=== PATIENT | female | born 1995 | race Caucasian/White ===

== ENCOUNTER 2020-08-11 12:10 | Emergency (ER) | payer BC, SELFPAY ==
[2020-08-11 12:12] VITALS: BP 143/90; PULSE 80; RESP 18; TEMP 36.7; O2SAT 99; BMI 21.6
--- NOTE | 2020-08-11 12:22 | PC.NURSE ---
after confirming pt medication with [facility] pharmacy and with pt, pt reports she was just worried she had taken a sleeping medication. Pt reports she feels her normal at this, denies drowsiness. Pt reports she does want to be seen by ER MD. 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 Pt reports she will call them after she leaves. Educated pt to come back to ER for any concerns, pt verbalized understanding.
[2020-08-11 12:24] VITALS: BP 143/90; PULSE 80; RESP 18; TEMP 36.7; O2SAT 99
--- NOTE | 2020-08-11 12:24 | PC.NURSE ---
pt LWBS by HALEY NICE at this time.
== END 2020-08-11 12:24 | disposition left against medical advice (07) ==
PROVIDERS: Emergency Provider Emergency Medicine; PCP Nurse Practitioner Family
DX: Z53.21 Procedure and treatment not carried out due to patient leaving prior to being seen by health care provider (principal); R51.9 Headache, unspecified
CPT/HCPCS: 99211

== ENCOUNTER → 2021-02-24 20:59 | Outpatient (CLI) | payer BC, SELFPAY | PROVIDERS: Visit Provider Nurse Practitioner Family | DX: J02.9 Acute pharyngitis, unspecified (principal) | CPT/HCPCS: C9803; U0003; U0005 ==

== ENCOUNTER → 2021-02-25 20:17 | Outpatient (CLI) | payer BC, SELFPAY | PROVIDERS: Visit Provider Nurse Practitioner Family | DX: Z20.822 Contact with and (suspected) exposure to COVID-19 (principal) | CPT/HCPCS: C9803; U0003; U0005 ==

== ENCOUNTER 2021-06-15 13:43 | Emergency (ER) | payer BC, SELFPAY ==
[2021-06-15 16:04] VITALS: BP 0/0; PULSE 0; RESP 0; TEMP -17.7; TEMP 0
== END 2021-06-15 16:04 | disposition left against medical advice (07) ==
LOC: UTC 13:47
PROVIDERS: Emergency Provider Nurse Practitioner Family
DX: Z53.21 Procedure and treatment not carried out due to patient leaving prior to being seen by health care provider (principal)

== ENCOUNTER 2022-01-21 10:48 | Emergency (ER) | payer BC, SELFPAY ==
[2022-01-21 13:35] VITALS: BP 0/0; PULSE 0; RESP 0; TEMP -17.7; TEMP 0
== END 2022-01-21 13:36 | disposition left against medical advice (07) ==
PROVIDERS: Emergency Provider Nurse Practitioner
DX: Z53.21 Procedure and treatment not carried out due to patient leaving prior to being seen by health care provider (principal)

== ENCOUNTER 2022-04-09 08:08 | Emergency (ER) | payer BC, SELFPAY ==
[2022-04-09 08:29] VITALS: BP 139/78; PULSE 88; RESP 18; TEMP 36.8; O2SAT 98; BMI 21.2
[2022-04-09 08:38] LABS: UTC Influenza A Antigen Positive (Negative); UTC Influenza B Antigen Negative (Negative); UTC Strep Screen (Rapid) Negative (Negative)
--- NOTE | 2022-04-09 08:45 | EXP.UTC ---
Discharge Plan Disposition Patient Disposition: Home, Self-Care Condition: Good Prescriptions Prescriptions: New oseltamivir [Tamiflu] 75 mg capsule 75 mg PO BID Qty: 10 0RF gyuqteeeqkshlbk-syleraove-GG [Bromfed DM] 2-30-10 mg/5 mL Syrup 5 ml PO Q6H PRN (Reason: Cough) Qty: 240 0RF No Action venlafaxine [Effexor XR] 150 mg capsule,extended release 24hr 150 mg PO HS Mirena 20 mcg/24 hours (6 yrs) 52 mg intrauterine device INTRAUTERI Referrals Follow up/Referrals: Provider,Referral, MD [Primary Care Provider] - See instructions Activity Restrictions/Add. Instructions Additional Instructions/Restrictions: Drink plenty of fluids. Take tylenol or ibuprofen for pain or fever. Take the medications as directed. Follow up with your regular doctor. GO TO THE ER FOR ANY WORSENING SYMPTOMS Clinical Impressions Clinical Impression: Influenza A Stand Alone Forms Stand Alone Forms: Work/School Release Instructions Patient Instructions: DI for Influenza -- Adult, Oseltamivir Discharge ED Provider: Dave Diamond [facility] General Stated complaint: Sore throat, BA, Cough, Congestion, BETHEA Mode of Arrival: Ambulatory Source of Information: Patient Limitations: No Limitations Time Seen by Provider: 04/09/22 08:45 Description of Symptoms (Recalled from Triage Doc. by RN): pt comes in with c/o body aches, headache, cough, congestion, sore throat. symptoms began wednesday. HEENT Symptoms (Recalled from RN notes): Yes Resp Symptoms (Recalled from RN notes): Yes Skin Symptoms (Recalled from RN notes): No MS Symptoms (Recalled from RN notes): No Functional Status (Recalled from RN notes): n/a History of Present Illness Provider Complaint: Her mother states that the child has had a cough, fever and poor appetite since yesterday,. Related Data Home Medications Medication Instructions Recorded Confirmed levonorgestrel 20 mcg/24 hours (8 intrauterine 02/24/21 02/24/21 yrs) 52 mg intrauterine device (Mirena) venlafaxine 150 mg 150 mg PO HS 02/24/21 02/24/21 capsule,extended release 24 hr (Effexor XR) Previous Rx's Medication Instructions Recorded gjujzfelggytxfs-mhaedxzwjjllnto-HG 5 ml PO Q6H PRN Cough #240 mL 04/09/22 2 mg-30 mg-10 mg/5 mL oral syrup (Bromfed DM) oseltamivir 75 mg capsule (Tamiflu) 75 mg PO BID #10 caps 04/09/22 Allergies Allergy/AdvReac Type Severity Reaction Status Date / Time No Known Allergies Allergy Verified 04/09/22 08:32 Worker's Comp Is this a Worker's Comp case?: No PFSH PFSH Social History Smoking Status: Current every day smoker tobacco type: cigarettes packs per day: 1 alcohol intake: never current occupational status: employed Travel in the last 8 weeks: None household members: family housing: house ROS Obtained: Yes All systems reviewed & no additional complaints except as documented Constitutional Constitutional: Reports chills and Reports fever(s) Eyes Eyes: Denies eye discharge ENT Ears, Nose, Mouth, and Throat: Reports as per HPI Cardiovascular Cardiovascular: Denies chest pain Respiratory Respiratory: Denies chest congestion and Reports cough Gastrointestinal Gastrointestingal: Reports nausea; Denies abdominal pain, constipation, cramping, diarrhea or vomiting Musculoskeletal Musculoskeletal: Denies arthralgias Integumentary/Breasts Skin/Breast: Denies rash Neurologic Neurologic: Denies paresthesias Physical Exam General General appearance: alert and in no apparent distress Head Head exam: atraumatic, normocephalic and normal inspection Eye Eye exam: Present normal appearance, PERRL and EOMI ENT ENT exam: Present normal exam, normal oropharynx, mucous membranes moist, TM's normal bilaterally and normal external ear exam Neck Neck exam: Present normal inspection, full ROM and trachea midline; Absent meningismus or lymphadenopathy Chest Annalisa
[2022-04-09 08:59] VITALS: BP 139/78; PULSE 88; RESP 18; TEMP 36.8
== END 2022-04-09 09:08 | disposition home or self-care (01) ==
PROVIDERS: Emergency Provider Nurse Practitioner Family
DX: J10.1 Influenza due to other identified influenza virus with other respiratory manifestations (principal); M54.9 Dorsalgia, unspecified; R50.9 Fever, unspecified; R05.9 Cough, unspecified; R51.9 Headache, unspecified; F17.210 Nicotine dependence, cigarettes, uncomplicated
CPT/HCPCS: 87804; 87880; 99213; G0463

== ENCOUNTER → 2022-11-05 23:00 | Outpatient (CLI) | payer BC, SELFPAY ==
[2022-11-05 18:38] LABS: Basophils % 0.2 % (0.1-2.0); Eosinophils # 0.2 K/mm3 (0.0-0.4); Eosinophils % 2.4 % (0.1-12.0); Hematocrit 39.5 % (37.0-47.0); Hemoglobin 13.2 g/dL (12.2-16.2); Lymphocytes # 3.2 K/mm3 (0.7-4.5); Lymphocytes % 43.5 % (10-50); Mean Corpuscular HGB Conc 33.3 g/dL (31.8-35.4); Mean Corpuscular Hemoglobin 27.9 pg (27.0-31.2); Mean Corpuscular Volume 83.6 fl (81-99); Mean Platelet Volume 7.9 fl (7.4-10.4); Monocytes # 0.3 K/mm3 (0.1-1.0); Monocytes % 4.3 % (1.7-9.3); Neutrophils # 3.6 K/mm3 (1.8-7.8); Neutrophils % 49.6 % (37.0-80.0); Platelet Count 294 K/mm3 (142-424); Red Blood Count 4.72 M/mm3 (4.20-5.40); Red Cell Distribution Width 13.7 % (11.5-17.5); White Blood Count 7.3 K/mm3 (4.8-10.8)
[2022-11-05 19:03] LABS: Alanine Aminotransferase 22 U/L (12-78); Albumin Level 4.7 g/dl (3.5-5.0); Albumin/Globulin Ratio 1.5 (1.1-1.8); Alkaline Phosphatase 54 U/L (38-126); Anion Gap 17.6 mEq/L (5-15); Aspartate Amino Transferase 30 U/L (14-36); Bilirubin,Total 0.9 mg/dl (0.2-1.3); Blood Urea Nitrogen 10 mg/dl (7-17); Carbon Dioxide 25 mmol/L (22.0-30.0); Chloride 102 mmol/L (98-107); Chol/HDL Ratio 2.2 (1-3.5); Cholesterol 145 mg/dl (140-200); Estimated Glomerular Filt Rate 122 ml/min (>60); GFR (African American) 147 ML/MIN (>60); Globulin 3.1 g/dL (1.3-3.2); Glucose 73 mg/dl (74-100); HDL Cholesterol 65 mg/dl (40-60); Potassium 4.6 mmoL/L (3.5-5.1); Sodium 140 mmol/L (136-145); Total Protein,Serum 7.8 g/dl (6.3-8.2); Triglycerides 58 mg/dl (30-150); VLDL Cholesterol 12 mg/dL (0-40)
[2022-11-05 19:15] LABS: Direct LDL Cholesterol 66.82 mg/dL (100-129)
[2022-11-05 19:24] LABS: 25-OH Vitamin D, Total 53.9 ng/mL (30-100)
[2022-11-05 19:53] LABS: Vitamin B12 606 pg/mL (239-931)
== END ==
PROVIDERS: PCP Physician Assistant; Visit Provider Physician Assistant
DX: F32.A Depression, unspecified (principal); F41.9 Anxiety disorder, unspecified; Z79.899 Other long term (current) drug therapy
CPT/HCPCS: 80053; 80061; 82306; 82607; 84443; 85025

== ENCOUNTER → 2022-11-26 08:48 | Outpatient (CLI) | payer BC, SELFPAY | PROVIDERS: Visit Provider Nurse Practitioner | DX: Z11.1 Encounter for screening for respiratory tuberculosis (principal) | CPT/HCPCS: 86580 ==

== ENCOUNTER 2023-06-01 13:52 | Emergency (ER) | payer BC, SELFPAY ==
[2023-06-01 16:02] VITALS: BP 0/0; PULSE 0; RESP 0; TEMP -17.7; TEMP 0
== END 2023-06-01 16:03 | disposition left against medical advice (07) ==
LOC: UTC 13:56
PROVIDERS: Emergency Provider Nurse Practitioner; PCP Physician Assistant
DX: Z53.21 Procedure and treatment not carried out due to patient leaving prior to being seen by health care provider (principal)

== ENCOUNTER 2023-08-11 10:49 | Emergency (ER) | payer BC, SELFPAY ==
[2023-08-11 11:05] VITALS: BP 106/76; PULSE 65; RESP 18; TEMP 37.1; O2SAT 97; BMI 23.6
--- NOTE | 2023-08-11 11:09 | ED_ITS ---
Discharge Plan Disposition Patient Disposition: Home, Self-Care Condition: Good Prescriptions Prescriptions: New amoxicillin 500 mg tablet 500 mg PO TID 10 Days Qty: 30 0RF bxmzfgmxbuxylgh-gzrupwjed-GY [Bromfed DM] 2-30-10 mg/5 mL Syrup 5 ml PO Q6H PRN (Reason: Cough) Qty: 240 0RF No Action Mirena 20 mcg/24 hours (6 yrs) 52 mg intrauterine device 1 device INTRAUTERI ONCE Trintellix 10 mg tablet 10 mg PO DAILY Qty: 30 2RF Referrals Follow up/Referrals: Guillermina Arias PA [Primary Care Provider] - See instructions Activity Restrictions/Add. Instructions Additional Instructions/Restrictions: Drink plenty of fluids. Take tylenol or ibuprofen for pain or fever. Take the medications as directed. Follow up with your regular doctor. GO TO THE ER FOR ANY WORSENING SYMPTOMS Throw your tooth brush away and get a new one. Clinical Impressions Clinical Impression: Strep throat Instructions Patient Instructions: Strep Throat, DI for Strep Throat Discharge ED Provider: Dave Diamond [facility] General Stated complaint: Sore throat Time Seen by Provider: 08/11/23 11:09 History of Present Illness Provider Complaint: She states that for the past 1 day she has had sore throat, malaise, cough, low grade fever and a cough. Related Data Home Medications Medication Instructions Recorded Confirmed levonorgestrel 21 mcg/24 hours (8 1 device intrauterine ONCE b/c 02/24/21 03/22/23 yrs) 52 mg intrauterine device (Mirena) Previous Rx's Medication Instructions Recorded vortioxetine 10 mg tablet 10 mg PO DAILY #30 tabs 04/27/23 (Trintellix) amoxicillin 500 mg tablet 500 mg PO TID 10 days #30 tabs 08/11/23 cssriuacycezizl-oxuzzmrokzabylq-PQ 5 ml PO Q6H PRN Cough #240 mL 08/11/23 2 mg-30 mg-10 mg/5 mL oral syrup (Bromfed DM) Allergies Allergy/AdvReac Type Severity Reaction Status Date / Time vraylar AdvReac Intermediate sleepiness Uncoded 08/11/23 11:21 [facility] Disclaimer: The information contained in this section may have been updated after the patient was seen, as this information can be updated by other users. Social History Smoking Status: Current every day smoker tobacco type: cigarettes packs per day: 1 alcohol intake: never current occupational status: employed Travel in the last 8 weeks: None household members: family housing: house ROS Obtained: Yes All systems reviewed & no additional complaints except as documented Constitutional Constitutional: Reports chills and Reports fever(s) Eyes Eyes: Denies eye discharge ENT Ears, Nose, Mouth, and Throat: Reports as per HPI Cardiovascular Cardiovascular: Denies chest pain Respiratory Respiratory: Denies chest congestion and Reports cough Gastrointestinal Gastrointestingal: Reports nausea; Denies abdominal pain, constipation, cramping, diarrhea or vomiting Musculoskeletal Musculoskeletal: Denies arthralgias Integumentary/Breasts Skin/Breast: Denies rash Neurologic Neurologic: Denies paresthesias Physical Exam General General appearance: alert and in no apparent distress Head Head exam: atraumatic, normocephalic and normal inspection Eye Eye exam: Present normal appearance, PERRL and EOMI ENT ENT exam: Present mucous membranes moist and normal external ear exam Expanded ENT Exam TM/Canal exam: Bilateral TM: erythema and bulging Nose exam: Absent sinus tenderness Mouth exam: Present normal external inspection; Absent drooling Teeth exam: Present normal inspection Throat exam: Present tonsillar erythema, tonsillomegaly and tonsillar exudate Neck Neck exam: Present normal inspection, full ROM and trachea midline; Absent tenderness, meningismus or lymphadenopathy Chest Chest inspection: Present normal inspection and symmetric chest wall rise; Absent tenderness Respiratory Respiratory exam: Present normal lung sounds bilaterally; Absent respiratory distress, wheezes, stridor or accessory muscle use Cardiovascular Cardiovascular exam: Present regular rate and normal rhythm; Absent systolic murmur or diastolic murmur Abdominal Exam Abdominal exam: Present soft and normal bowel sounds; Absent distention, tenderness, guarding, rebound or rigidity Extremities Exam Extremities exam: Present normal inspection and normal capillary refill; Absent calf tenderness Back Exam Back exam: Present normal inspection and full ROM; Absent tenderness, CVA tenderness (R) or CVA tenderness (L) Neurological Exam Neurological exam: Present alert, oriented X3 and CN II-XII intact Psychiatric Psychiatric exam: Present normal affect and normal mood Skin Skin exam: Present warm, dry, intact and normal color Medical Decision Making Medical Records Medical records reviewed: No I reviewed the patient's medical records. Presley Inquiry Pt receiving controlled substance: No Lab Data Lab results reviewed: Yes I reviewed the patient's lab results.
[2023-08-11 11:22] LABS: UTC Strep Screen (Rapid) Positive (Negative)
[2023-08-11 11:52] VITALS: BP 106/76; PULSE 65; RESP 18; TEMP 37.1; O2SAT 97
== END 2023-08-11 11:52 | disposition home or self-care (01) ==
PROVIDERS: Emergency Provider Nurse Practitioner Family; PCP Physician Assistant
DX: J02.0 Streptococcal pharyngitis (principal); R05.9 Cough, unspecified; R53.81 Other malaise; F17.210 Nicotine dependence, cigarettes, uncomplicated
CPT/HCPCS: 87880; 99212; 99214; G0463

== ENCOUNTER 2023-09-21 17:48 | Day surgery (SDC) | payer BC, SELFPAY ==
[2023-09-21] VITALS (8 sets, daily range): BP systolic 120–152; BP diastolic 63–84; PULSE 61–75; RESP 16–20; TEMP 36.8; O2SAT 99–100; BMI 22.0
--- NOTE | 2023-09-21 18:14 | HMH.EDGENADL ---
Discharge Plan Disposition Patient Disposition: Admitted Chief Complaint: Urogenital-Female Prescriptions Prescriptions: No Action Mirena 20 mcg/24 hours (6 yrs) 52 mg intrauterine device 1 device INTRAUTERI ONCE Trintellix 10 mg tablet See Rx Instructions .ROUTE .COMPLEX Qty: 30 0RF Dose Instruction: Take 1 tablet by mouth once daily Rx Instructions: Take 1 tablet by mouth once daily amoxicillin 500 mg tablet 500 mg PO TID 10 Days Qty: 30 0RF rvqvelawszdxajd-jvjncwaav-UI [Bromfed DM] 2-30-10 mg/5 mL Syrup 5 ml PO Q6H PRN (Reason: Cough) Qty: 240 0RF Referrals Follow up/Referrals: Guillermina Arias PA [Primary Care Provider] - See instructions Clinical Impressions Clinical Impression: Torsion of left ovary, Cyst of right ovary Instructions Patient Instructions: DI for Urinary Tract Infection (UTI), DI for Urinary Tract Infection in Children Discharge ED Provider: Thomas Gonzales General Adult HPI General Chief complaint: Urogenital-Female Stated complaint: abd pain, possible lost vaginal IUD Time Seen by Provider: 09/21/23 17:51 History of Present Illness HPI narrative: 28-year-old female with no relevant medical history presenting with concern for IUD displacement. Patient states that she had IUD placed about 6 months ago. Today, 09/20, woke up and began having pain in her left lower quadrant. Crescendo throughout the day. Went to work and had not taken any medications. Got home after work today, tried to lay down to take a nap. Pain woke her up from sleep in her left lower quadrant. Left lower quadrant pain radiates to her left flank. No dysuria, hematuria, fevers, chills, vomiting, blood in her stool, constipation, diarrhea, abnormal vaginal discharge or bleeding. Please note that above description of symptoms, in this electronic medical record under categorization of recalled from ER triage doctor by RN are reflective of an initial nursing assessment, however, is not reflective of my full history and physical exam that was personally taken and clarified. Consequentially, this preceding description of symptoms, which may include the patient's categorized chief complaint in the EMR, do not reflect my personal clinical impression, and the ultimate description of history of present illness and patient stated complaints should be deferred to this section of the note. Unless stated otherwise or congruent with this section of the note, additional signs, symptoms, or incongruence should be interpreted as inaccurate with my clinical impression. Related Data Home Medications Medication Instructions Recorded Confirmed levonorgestrel 21 mcg/24 hours (8 1 device intrauterine ONCE b/c 02/24/21 03/22/23 yrs) 52 mg intrauterine device (Mirena) Previous Rx's Medication Instructions Recorded amoxicillin 500 mg tablet 500 mg PO TID 10 days #30 tabs 08/11/23 eyfftqlpgaroqbl-tmycsiwvbpaizyq-ZY 5 ml PO Q6H PRN Cough #240 mL 08/11/23 2 mg-30 mg-10 mg/5 mL oral syrup (Bromfed DM) vortioxetine 10 mg tablet See Rx Instructions .Route 09/20/23 (Trintellix) .COMPLEX #30 tabs Allergies Allergy/AdvReac Type Severity Reaction Status Date / Time cariprazine [From Vraylar] AdvReac Depression Verified 09/17/23 10:46 PFSH PFS Disclaimer: The information contained in this section may have been updated after the patient was seen, as this information can be updated by other users. Social History Smoking Status: Never smoker alcohol intake: never current occupational status: employed Travel in the last 8 weeks: None household members: family housing: house ROS Obtained: Yes All systems reviewed & no additional complaints except as documented Physical Exam General General appearance: alert and in no apparent distress Head Head exam: atraumatic and normocephalic Eye Eye exam: Present normal appearance, PERRL and EOMI ENT ENT exam: Present mucous membranes moist Neck Neck exam: Present normal inspection, full ROM and trachea midline Respiratory Respiratory exam: Absent respiratory distress, wheezes, stridor, accessory muscle use or prolonged expiratory phase Cardiovascular Cardiovascular exam: Present normal rhythm Abdominal Exam Abdominal exam: Present soft and tenderness; Absent distention, guarding, rebound or rigidity Abdominal tenderness: Present LLQ and mild Extremities Exam Extremities exam: Absent edema Back Exam Back exam: Present CVA tenderness (L); Absent CVA tenderness (R) Neurological Exam Neurological exam: Present alert, oriented X3, CN II-XII intact and normal gait; Absent motor sensory deficit Skin Skin exam: Present warm and dry; Absent diaphoresis or erythema Medical Decision Making Medical Records Medical records reviewed: Yes I reviewed the patient's medical records. Presley Inquiry Pt receiving controlled substance: No Presley was queried for this patient: No Vital Signs: 09/21/23 18:02 09/21/23 20:13 09/21/23 20:30 Temperature 98.3 F Temperature Source Oral Pulse Rate 65 61 Pulse Rate [Left Radial] 75 Respiratory Rate 20 18 16 Blood Pressure 123/72 127/84 Blood Pressure [Right Arm] 129/83 Blood Pressure Mean 86 94 Blood Pressure Mean [Right Arm] 98 02 Sat by Pulse Oximetry 99 100 100 Oxygen Delivery Method Room Air Room Air Room Air 09/21/23 21:40 Temperature Temperature Source Pulse Rate 70 Pulse Rate [Left Radial] Respiratory Rate Blood Pressure 121/78 Blood Pressure [Right Arm] Blood Pressure Mean 89 Blood Pressure Mean [Right Arm] 02 Sat by Pulse Oximetry 100 Oxygen Delivery Method Lab Data Lab Results 09/21/23 18:29: Urine Color Yellow, Urine Appearance Clear, Urine pH 6.0, Ur Specific [place] 1.025, Urine Protein Negative, Urine Glucose (UA) Negative, Urine Ketones Negative, Urine Blood 1+, Urine Nitrate Negative, Urine Bilirubin Negative, Urine Urobilinogen 0.2, Ur Leukocyte Esterase Negative, Urine RBC 3-5, Urine WBC Occasional, Ur Squamous Epith Cells Occasional, Urine Bacteria None 09/21/23 18:38: WBC 8.0, RBC 4.13 L, Hgb 12.1 L, Hct 34.9 L, MCV 84.6, MCH 29.3, MCHC 34.6, RDW 14.8, Plt Count 215, MPV 7.9, Neut % (Auto) 52.0, Lymph % (Auto) 38.8, [place] % (Auto) 4.3, Eos % (Auto) 4.2, Baso % (Auto) 0.8, Neut # (Auto) 4.2, Lymph # (Auto) 3.1, [place] # (Auto) 0.4, Eos # (Auto) 0.3, Baso # (Auto) 0.1, Sodium 140, Potassium 3.4 L, Chloride 110 H, Carbon Dioxide 25, Anion Gap 8.4, BUN 11, Creatinine 0.70, Estimated Creat Clear 126, Estimated GFR 101, Est GFR ( Amer) 122, Glucose 72 L, Lactate 0.5 L, Calcium 9.1, Total Bilirubin 0.7, AST 26, ALT 17, Alkaline Phosphatase 50, Total Protein 6.8, Albumin 4.1, Globulin 2.7, Albumin/Globulin Ratio 1.5, Lipase 32, HCG, Quant < 2 09/21/23 18:38 09/21/23 18:38 Orders (Tests/Meds): ED MEDICATIONS Generic Name Dose Route Start Last Admin Trade Name Freq PRN Reason Stop Dose Admin Lactated Ringer's 1,000 mls @ 999 mls/hr 09/21/23 22:10 09/21/23 22:13 Lactated Ringer's 1000 Ml Bag IV 09/21/23 23:10 999 mls/hr .Q1H1M ONE Administration Sodium Chloride 10 ml 09/21/23 19:35 09/21/23 19:36 Sodium Chloride 0.9% 10ml Syr (Rad Only) IV 10/21/23 19:34 10 ml NEEDED PRN Administration Maintain IV Site Discontinued Medications Generic Name Dose Route Start Last Admin Trade Name Freq PRN Reason Stop Dose Admin Acetaminophen 1,000 mg 09/21/23 19:24 09/21/23 19:48 Acetaminophen 1,000mg/100ml Vial IV 09/21/23 19:25 1,000 mg ONCE ONE Administration Iopamidol 75 ml 09/21/23 19:35 09/21/23 19:36 Iopamidol-370 (76%);100ml Bottle IV 09/21/23 19:36 75 ml ONCE ONE Administration Ketorolac Tromethamine 15 mg 09/21/23 19:23 09/21/23 19:48 Ketorolac 30mg/Ml Vial IV 09/21/23 19:24 15 mg ONCE ONE Administration ORDERS Category Date Time Status CT abdomen pelvis w con Stat Cat Scan 09/21/23 19:23 Completed POCUS Point of Care (ER Only) Stat Exams 09/21/23 18:01 Taken US transvaginal Stat Exams 09/21/23 20:32 Taken Complete Blood Count Auto Diff Stat Lab 09/21/23 18:38 Completed Comprehensive Metabolic Panel Stat Lab 09/21/23 18:38 Completed HCG,Quantitative Stat Lab 09/21/23 18:38 Completed Lactic Acid Stat Lab 09/21/23 18:38 Completed Lipase Stat Lab 09/21/23 18:38 Completed Urinalysis and Microscopic Stat Lab 09/21/23 18:29 Completed Medical Decision Narrative: 28-year-old female with no relevant medical history presenting with concern for IUD displacement. Patient states that she had IUD placed about 6 months ago. Today, 09/20, woke up and began having pain in her left lower quadrant. Crescendo throughout the day. Went to work and had not taken any medications. Got home after work today, tried to lay down to take a nap. Pain woke her up from sleep in her left lower quadrant. Left lower quadrant pain radiates to her left flank. No dysuria, hematuria, fevers, chills, vomiting, blood in her stool, constipation, diarrhea, abnormal vaginal discharge or bleeding. History was obtained via conversation with patient. On arrival, patient hemodynamically stable, alert, oriented x4, appropriate, GCS 15, moving all extremities spontaneously, pupils equal and reactive to light. Full physical exam performed and significant for mildly uncomfortable appearing woman who is in no acute distress. Nontachycardic on my exam. Speaking in full sentences. No overlying skin changes. Abdomen is soft, mildly tender in left lower quadrant. No evidence of rebound tenderness or peritonitis. She does have left flank tenderness. Differential includes PUD, gastritis, enteritis, gastroenteritis, pancreatitis, SBO, colitis, diverticulitis, nephrolithiasis, UTI, , cholecystitis, appendicitis, hepatitis, torsion, among others. Patient was given Toradol and acetaminophen for symptomatic management and correction of underlying abnormalities. Workup independently interpreted and significant for nonactionable CBC. Electrolytes within normal limits, kidney function normal. LFTs within normal limits as well. hCG was negative. CT abdomen pelvis independently interpreted and with concern for heterogenous left adnexal cyst as well as large right adnexal cyst. Pelvic ultrasound was ordered. On independent interpretation, this demonstrated large right adnexal simple cyst without evidence of torsion, but large hemorrhagic adnexal cyst on the left versus acute ovarian torsion. VENDING SERVICE TECHNICIAN was contacted and case was discussed at length, they agreed to come see patient. Patient n.p.o. since noon today, 09/20, deemed operative candidate. Fluids were started. Because patient high risk for clinical decompensation, deemed appropriate for inpatient admission. Results were relayed to patient who voiced understanding and patient was agreeable to inpatient admission and management. Patient was admitted to the hospital for further definitive management. Procedures Limited Ultrasound Indication:: Limited renal ultrasound Indication: A focused ultrasound of the kidneys was performed to evaluate for hydronephrosis and nephrolithiasis. The ultrasound was performed with the following indications, as noted in the H&P: Abdominal and flank pain on the left Identified structures: Left kidney, bladder Findings: Left kidney with concern for mild hydronephrosis Normal decompressed bladder No free fluid No obvious ureterolithiasis Impression: Mild hydronephrosis with decompressed bladder Images were saved to permanent archive The study was technically adequate CPT: 58556-61 This study was performed by me, and I personally interpreted all images/videos. Based on my clinical judgement, these images were adequate and did necessitate further imaging. Critical Care Critical Care Time Critical Care Time: No
[2023-09-21 18:32] LABS: Microscopic, Urine URINE MICROSCOPIC (MICROSCOPIC)
[2023-09-21 18:48] LABS: Appearance,Urine CLEAR (Clear); Bilirubin,Urine Negative (Negative); Blood, Urine 1+ (Negative); Color,Urine YELLOW (Yellow); Glucose,Urine (UA) Negative (Negative); Ketones,Urine Negative (Negative); Leukocyte Esterase,Urine Negative (Negative); Nitrate,Urine Negative (Negative); Protein,Urine Negative (Negative); Specific Gravity, Urine 1.025 (1.005-1.030); Urobilinogen,Urine 0.2 EU/dl (0.2)
[2023-09-21 18:52] LABS: Basophils # 0.1 K/mm3 (0-0.2); Basophils % 0.8 % (0.1-2.0); Eosinophils # 0.3 K/mm3 (0.0-0.4); Eosinophils % 4.2 % (0.1-12.0); Hematocrit 34.9 % (37.0-47.0); Hemoglobin 12.1 g/dL (12.2-16.2); Lymphocytes # 3.1 K/mm3 (0.7-4.5); Lymphocytes % 38.8 % (10-50); Mean Corpuscular HGB Conc 34.6 g/dL (31.8-35.4); Mean Corpuscular Hemoglobin 29.3 pg (27.0-31.2); Mean Corpuscular Volume 84.6 fl (81-99); Mean Platelet Volume 7.9 fl (7.4-10.4); Monocytes # 0.4 K/mm3 (0.1-1.0); Monocytes % 4.3 % (1.7-9.3); Neutrophils # 4.2 K/mm3 (1.8-7.8); Platelet Count 215 K/mm3 (142-424); Red Blood Count 4.13 M/mm3 (4.20-5.40); Red Cell Distribution Width 14.8 % (11.5-17.5)
[2023-09-21 18:57] LABS: Chloride 110 mmol/L (98-107); Potassium 3.4 mmoL/L (3.5-5.1); Sodium 140 mmol/L (136-145)
[2023-09-21 18:59] LABS: Alanine Aminotransferase 17 U/L (12-78); Aspartate Amino Transferase 26 U/L (14-36); Blood Urea Nitrogen 11 mg/dl (7-17); Creatinine Clearance Estimated 126 mL/min (50-200); Estimated Glomerular Filt Rate 101 ml/min (>60); GFR (African American) 122 ML/MIN (>60); Lactic Acid 0.5 mmol/L (0.7-2.1)
[2023-09-21 19:00] LABS: Albumin Level 4.1 g/dl (3.5-5.0); Albumin/Globulin Ratio 1.5 (1.1-1.8); Alkaline Phosphatase 50 U/L (38-126); Anion Gap 8.4 mEq/L (5-15); Bilirubin,Total 0.7 mg/dl (0.2-1.3); Calcium 9.1 mg/dl (8.4-10.2); Carbon Dioxide 25 mmol/L (22.0-30.0); Globulin 2.7 g/dL (1.3-3.2); Glucose 72 mg/dl (74-100); Lipase 32 U/L (23-300); Total Protein,Serum 6.8 g/dl (6.3-8.2)
[2023-09-21 19:17] LABS: HCG,Quantitative < 2 mIU/ml (0-5.42)
--- NOTE | 2023-09-21 19:23 | CT_ITS ---
PROCEDURE INFORMATION: Exam: CT Abdomen And Pelvis With Contrast Exam date and time: 09/21/2023 7:34 PM Age: 28 years old Clinical indication: Abdominal pain; Flank; Left lower quadrant (llq); Additional info: Llq pain to flank, concern for mild hydro on US TECHNIQUE: Imaging protocol: Computed tomography of the abdomen and pelvis with contrast. Total images: 290 Radiation optimization: All CT scans at this facility use at least one of these dose optimization techniques: automated exposure control; mA and/or kV adjustment per patient size (includes targeted exams where dose is matched to clinical indication); or iterative reconstruction. Contrast material: ISOVUE; Contrast volume: 75 ml; Contrast route: IV; COMPARISON: No relevant prior studies available. FINDINGS: Lungs: Lung bases are clear. Heart: Normal heart size. Liver: Nonenlarged liver with mildly heterogeneous attenuation. Normal contour. No discrete mass. Gallbladder and bile ducts: Mild gallbladder wall thickening likely from incomplete distension. No calcified gallstones or pericholecystic edema. No bile duct dilatation. Pancreas: Normal. No ductal dilation. Spleen: Heterogeneous nonenlarged spleen compatible phase of contrast. Adrenal glands: Normal. No mass. Kidneys and ureters: No nephrolithiasis, hydronephrosis, or renal mass. No perinephric fluid. No ureteral stones. Stomach and bowel: Unremarkable stomach and duodenum. No ileus or bowel obstruction. Small bowel is within normal limits. Unremarkable terminal ileum. Unremarkable colon. Collapsed rectum. Appendix: Normal appendix. Intraperitoneal space: No ascites. No free air. Vasculature: Abdominal aorta is normal in caliber. Major abdominal vessels enhance appropriately. Lymph nodes: Unremarkable. No enlarged lymph nodes. Urinary bladder: Mild bladder wall thickening. Reproductive: Retroverted nonenlarged uterus containing an IUD. 3.6 cm right ovarian cyst with simple water attenuation. 4.5 cm complex left ovarian lesion with attenuation higher than water density and a possible peripheral rind of soft tissue or blood product. Recommend follow-up ultrasound. Small quantity free pelvic fluid. Bones/joints: Unremarkable. No acute fracture. Soft tissues: Unremarkable. IMPRESSION: 1. 4.5 cm complex left ovarian lesion, not consistent with a simple cyst. Follow-up pelvic ultrasound with Doppler. 2. 3.6 cm right ovarian simple appearing cyst. This can be further evaluated time of ultrasound. 3. Small quantity free pelvic fluid. 4. Status post IUD. 5. No hydronephrosis or nephrolithiasis. 6. Normal appendix. 7. Mildly heterogeneous liver attenuation likely from phase of contrast versus steatosis or sequela of nonspecific hepatocellular process. 8. Gallbladder wall thickening most likely from incomplete distension. No secondary signs of acute cholecystitis. 9. Mild bladder wall thickening from incomplete distension versus cystitis.
[2023-09-21 19:34] LABS: Squamous Epithelial Cell,Urine Occasional #/hpf (0-5); WBC,Urine Occasional #/hpf (0-3)
[2023-09-21] MEDS: SODIUM CHLORIDE 0.9% 10ML SYR (RAD ONLY) 10 ML IV (19:36)
[2023-09-21] MEDS: IOPAMIDOL-370 (76%);100ML BOTTLE 75 ML IV (19:36)
[2023-09-21] MEDS: KETOROLAC 30MG/ML VIAL 15 MG IV (19:48)
[2023-09-21] MEDS: ACETAMINOPHEN 1,000MG/100ML VIAL 1000 MG IV (19:48)
--- NOTE | 2023-09-21 19:52 | PC.NURSE ---
Pt medicated, warm blanket provided, family at bedside, no other needs at this time
--- NOTE | 2023-09-21 20:32 | US_ITS ---
PROCEDURE INFORMATION: Exam: US Duplex Artery and Vein of the Abdominal and/or Reproductive Organs. Complete Ovaries Exam date and time: 09/21/2023 8:59 PM Clinical indication: Pelvic pain; Additional info: L ovarian pain concern for torsino TECHNIQUE: Imaging protocol: Real-time duplex ultrasound scan of the arterial and venous flow with color Doppler flow and spectral waveform analysis with image documentation. Complete duplex exam focused on the ovaries. Duplex exam was performed to evaluate for torsion and other vascular conditions. COMPARISON: No relevant prior studies available. FINDINGS: Right ovary/adnexa: Normal duplex of the ovary. Normal Doppler waveforms and color flow. Arterial and venous flow are normal. No evidence of ovarian torsion. Left ovary/adnexa: Normal duplex of the ovary. Normal Doppler waveforms and color flow. Arterial and venous flow are normal. No evidence of ovarian torsion. IMPRESSION: Normal ovarian arterial and venous vascular flow. No evidence ovarian torsion. PROCEDURE INFORMATION: Exam: US Pelvis, Transvaginal Exam date and time: 09/21/2023 8:59 PM Age: 28 years old Clinical indication: Pelvic pain; Additional info: L ovarian pain concern for torsino LABS AND CLINICAL REPORTS: Last menstrual period start date: 09/03/2023 TECHNIQUE: Imaging protocol: Real-time transvaginal pelvic ultrasound with image documentation. Transvaginal imaging was used for better evaluation of the endometrium, adnexa, and/or cervix. Total images: 496 COMPARISON: CT ABDOMEN PELVIS W CON 09/21/2023 7:34 PM FINDINGS: Uterus: Retroverted uterus measures 7.59 cm x 4.65 cm x 4.67 cm. Homogeneous myometrium. No uterine mass. Endometrial thickness 9.5 mm. Appropriately positioned IUD. Right ovary/adnexa: Right ovary measures 5.14 cm x 4.19 cm x 3.13 cm. Right ovarian volume is 35.3 mL. 3.6 x 2.8 x 2.9 cm simple unilocular right ovarian cyst corresponding with CT. Additional right ovarian follicles. Left ovary/adnexa: Left ovary measures 4.87 cm x 4.57 cm x 3.98 cm. Left ovarian volume is 46.38 mL. Complex avascular hypoechoic left ovarian lesion, measuring 4.4 cm, near completely replacing the normal ovarian parenchyma. Findings likely reflect hemorrhagic cyst or endometrioma. Consider ovarian dermoid. Intraperitoneal space: Small quantity free pelvic fluid. IMPRESSION: 1. Enlarged left ovary near completely replaced by a 4.4 cm complex hypoechoic avascular lesion, favoring hemorrhagic cyst, endometrioma, or possible dermoid. Recommend 6-12 week follow-up to ensure resolution. If the cyst is unchanged, then hemorrhagic cyst is unlikely, and continued follow-up with either US or MR should then be considered. If these studies do not confirm an endometrioma or dermoid, then surgical evaluation should be considered. 2. Enlarged right ovary containing a 3.6 cm simple unilocular cyst. 3. Small quantity free pelvic fluid 4. Retroverted uterus 5. Appropriately positioned IUD.
--- NOTE | 2023-09-21 20:32 | PC.NURSE ---
notified xray of tranvaginal ultrasound
--- NOTE | 2023-09-21 20:35 | PC.NURSE ---
rounded on pt at this time , pt voices no needs
--- NOTE | 2023-09-21 21:36 | PC.NURSE ---
pt back to room from
--- NOTE | 2023-09-21 21:38 | PC.NURSE ---
paged Dr Pack at this time
--- NOTE | 2023-09-21 21:41 | PC.NURSE ---
rounded on pt at this time. pt voices no needs
--- NOTE | 2023-09-21 22:08 | PC.NURSE ---
Jess Pack at bedside for surgery consent. consent signed. PT removing jewlery and putting on a gown
--- NOTE | 2023-09-21 22:09 | PC.NURSE ---
2nd IV placed- 20G RAC
[2023-09-21] MEDS: LACTATED RINGERS 1000ML 1,000 ML 999 ML IV (22:13)
--- NOTE | 2023-09-21 22:36 | PC.NURSE ---
rounded on pt at this time, pt voices no needs.
--- NOTE | 2023-09-21 23:02 | PC.NURSE ---
rounded on pt at this time. s/o given snack and drink
--- NOTE | 2023-09-21 23:35 | PC.NURSE ---
rounded on pt at this time. fluids finished and IV flushed. pt voices no needs at this time.
--- NOTE | 2023-09-21 23:47 | EXP.HP ---
History of Present Illness *Admission Date: 09/21/23 *Reason for visit:: suspected ovarian torsion *History of present illness: Milagros Medeiros is a 28-year-old who presented to the emergency department today after persistent lower abdominal pain that started this morning at 6:30 in the morning. The patient states that the pain was worse with ambulation she tried to go to work but had persistent pain throughout the day. She came home and tried to take a nap but the pain was so severe that it woke up from her nap. She has had persistent nausea and has been unable to eat anything secondary to the nausea. Denies any known drug allergies although Vraylar is listed the patient states that she just did not tolerate this medicine well and it did not work well for her. She denies any fevers. She is using an IUD for contraception. She has had 2 vaginal deliveries and denies any surgical history. Reports that the car ride here was extremely painful. [facility] Disclaimer: The information contained in this section may have been updated after the patient was seen, as this information can be updated by other users. Social History Smoking Status: Never smoker alcohol intake: never current occupational status: employed Travel in the last 8 weeks: None household members: family housing: house Review of Systems Review of Systems Review of systems (narrative): Review of Systems Constitutional: Denies fever, chills, and sweats Eyes: Denies vision change/ pain Respiratory: Denies cough and shortness of breath Cardiovascular: Denies chest pain and lightheadedness Gastrointestinal: Admits significant abdominal pain. Endorses nausea Genitourinary: Denies dysuria and incontinence Musculoskeletal: Endorses some back pain Neurological: Denies change in speech or headaches Meds Home Medications and Allergies Home Medications Medication Instructions Recorded Confirmed Type levonorgestrel 21 mcg/24 hours (8 1 device intrauterine ONCE b/c 02/24/21 03/22/23 History yrs) 52 mg intrauterine device (Mirena) amoxicillin 500 mg tablet 500 mg PO TID 10 days #30 tabs 08/11/23 Rx nusrbcjqsahrmcl-mvnfbghzckpiano-AW 5 ml PO Q6H PRN Cough #240 mL 08/11/23 Rx 2 mg-30 mg-10 mg/5 mL oral syrup (Bromfed DM) vortioxetine 10 mg tablet See Rx Instructions .Route 09/20/23 Rx (Trintellix) .COMPLEX #30 tabs New Prescriptions to Start Prescriptions: Allergies Allergy/AdvReac Type Severity Reaction Status Date / Time cariprazine [From [facility]] AdvReac Depression Verified 09/17/23 10:46 Exam Data for Last 24 hours Vital signs and Labs for Last 24 Hours: Temp Pulse Resp BP Pulse Ox O2 Del Method 98.3 F 64 16 146/79 H 100 Room Air 09/21/23 18:02 09/21/23 23:34 09/21/23 20:30 09/21/23 23:34 09/21/23 23:34 09/21/23 20:30 Laboratory Results - last 24 hr 09/21/23 18:29: Urine Color Yellow, Urine Appearance Clear, Urine pH 6.0, Ur Specific [place] 1.025, Urine Protein Negative, Urine Glucose (UA) Negative, Urine Ketones Negative, Urine Blood 1+, Urine Nitrate Negative, Urine Bilirubin Negative, Urine Urobilinogen 0.2, Ur Leukocyte Esterase Negative, Urine RBC 3-5, Urine WBC Occasional, Ur Squamous Epith Cells Occasional, Urine Bacteria None 09/21/23 18:38: WBC 8.0, RBC 4.13 L, Hgb 12.1 L, Hct 34.9 L, MCV 84.6, MCH 29.3, MCHC 34.6, RDW 14.8, Plt Count 215, MPV 7.9, Neut % (Auto) 52.0, Lymph % (Auto) 38.8, [place] % (Auto) 4.3, Eos % (Auto) 4.2, Baso % (Auto) 0.8, Neut # (Auto) 4.2, Lymph # (Auto) 3.1, [place] # (Auto) 0.4, Eos # (Auto) 0.3, Baso # (Auto) 0.1, Sodium 140, Potassium 3.4 L, Chloride 110 H, Carbon Dioxide 25, Anion Gap 8.4, BUN 11, Creatinine 0.70, Estimated Creat Clear 126, Estimated GFR 101, Est GFR ( Amer) 122, Glucose 72 L, Lactate 0.5 L, Calcium 9.1, Total Bilirubin 0.7, AST 26, ALT 17, Alkaline Phosphatase 50, Total Protein 6.8, Albumin 4.1, Globulin 2.7, Albumin/Globulin Ratio 1.5, Lipase 32, HCG, Quant < 2 I & O for Last 24 hours: Intake & Output 09/18/23 09/19/23 09/20/23 09/21/23 23:59 23:59 23:59 23:59 Weight 145 lb Narrative: General: patient is alert oriented in no acute distress and responds appropriately to questions. HEENT: NCAT, EOMI, moist mucous membranes, neck supple with full ROM Cardiovascular: RRR +S1/S2, no murmurs or rubs Pulmonary: Clear to auscultation bilaterally, nonlabored breathing, symmetric chest rise Abdominal: Some tenderness noted in the right and left lower quadrants pain is worse in the left lower quadrant. No guarding or rebound noted. Extremities: No edema, no tenderness or cyanosis noted Skin: Normal turgor, intact, warm. Negative for erythema, pallor, petechia, or lesions Neurologic: Negative for sensory or motor deficit Psychiatric: Normal affect, normal thought process, good judgment and insight, no depression or anxious mood appreciated. *Routine HEENT Exam Head: Present normocephalic and atraumatic Eye: Present EOMI, PERRL and normal accommodation; Absent conjunctival icterus, scleral injection, nystagmus or exophthalmos ENT: Present mucous membranes moist *Routine Neck Exam Neck: Present supple and full ROM *Routine Respiratory Exam Respiratory: Present CTA bilaterally, normal respiratory effort, able to speak in complete sentences and symmetric chest movement; Absent accessory muscle use, decreased breath sounds, rales, respiratory distress, wheezes, distant breath sounds or diminished air movement *Routine Cardiovascular Exam Cardiovascular: Present RRR, Normal S1 and Normal S2; Absent murmur or gallop *Routine Abdominal Exam Abdominal: Present soft, normoactive bowel sounds and tenderness; Absent distended, rebound or guarding *Routine Rectal Exam Rectal:: deferred *Routine Genitalia Exam Genitalia:: normal female *Routine Extremities Exam Extremities: Present full ROM; Absent cyanosis, clubbing or edema *Routine Skin Exam Skin: Present intact; Absent cyanosis or erythema *Routine Neurological Exam Neurological: Present alert and oriented X3; Absent sensory deficit or motor deficit Assessment and Plan *Assessment and plan (1) Cyst of right ovary: Status: Acute Category: Medical Code(s): N83.201 - Unspecified ovarian cyst, right side (2) Torsion of left ovary: Status: Acute Category: Medical Code(s): N83.512 - Torsion of left ovary and ovarian pedicle Plan I was consulted by the ED physician who suspected ovarian torsion of the left ovary. I independently reviewed her abdominal CT which noted a 4-1/2 cm complex left ovarian lesion and a 3-1/2 cm right simple ovarian cyst. CT scan also noted a small quantity of free fluid in the pelvis as well as an IUD in the uterus. Noted and normal appendix. No hydronephrosis or nephrolithiasis. No secondary signs of acute cholecystitis. The read was not back on the transvaginal ultrasound and I independently reviewed and interpreted the images. The left ovary had an enlarged and edematous appearance to it. The left ovary measured 4.87 x 4.57 x 3.98 cm with a volume of 46 mL. Videos reviewed of the left ovary and ovarian vein torsion suspected. The right ovary had a very simple appearing benign cyst. The right ovary measured 5.14 cm x 4.19 cm x 3.13 cm with a volume of 35 mL. The uterus was normal in size and appearance measuring 7.59 cm x 4.67 cm x 4.65 cm with a uterine volume of 86 mL. IUD was noted. The patient was counseled on the risk and benefits of diagnostic laparoscopy secondary to suspected ovarian torsion. She consented to proceed with surgery. I specifically discussed the risk of bleeding, infection, and injury to the surrounding structures to include the bowel, bladder, reproductive organs, and neurovascular bundles. The patient voiced understanding and consented to proceed. She consented to blood transfusion if deemed medically necessary. She voiced understanding that should an injury to the bowel or bladder occur it may prolong her recovery time and require further surgeries for repair. I discussed that while the goal would be to simply detorsed the ovary and leave it in situ there was a possibility of oophorectomy and salpingectomy. I reviewed her beta-hCG which was negative prior to proceeding with surgery. I discussed that she may have intermittent torsion or this may just be a hemorrhagic cyst. Idiscussed that if it were the hemorrhagic cyst causing her pain and her Hgb was stable this may be an unnecessary procedure but given the clinical suspicion of ovarian torsion between shared decision making we elected to proceed with diagnostic laparoscopy.
[2023-09-22] VITALS (11 sets, daily range): BP systolic 115–149; BP diastolic 63–81; PULSE 64–118; RESP 16–18; TEMP 36.2–43; O2SAT 99–100
--- NOTE | 2023-09-22 00:09 | PC.NURSE ---
Zaid Cortes JOY LOADING MACHINE OPERATOR at bedside to take pt to pre op
--- NOTE | 2023-09-22 00:15 | EXP.ANES.CKL ---
[facility] Disclaimer: The information contained in this section may have been updated after the patient was seen, as this information can be updated by other users. Social History Smoking Status: Never smoker alcohol intake: never substance use type: denies use current occupational status: employed Travel in the last 8 weeks: None household members: family housing: house [facility] Anesthesia Checklist Patient Identification Patient Identification: Arm Band, Family and Verbal (Name & ) Structural Data Admitted From: Emergency Dept Planned Operative Procedure/s: Laparoscopic detorsion left ovary Consent for Planned Operative Procedure(s) Verified: Yes Verified Documents: Surgical Consent and History and Physical NPO Status Verified Time NPO: 12:00 Chart Verification Results Verified: CBC, BMP and HCG Additional verifications Patient : No Anesthesia Reactions: No Cardiovascular Assessment Heart Sounds: S1 & S2 Pulse Rhythm: Irregular Peripheral Edema: No Airway Assessment Mallampati Score:: Class II C-Spine Mobility Assessed: Yes (FROM) TMJ Mobility Assessed: Yes Dentition: Good Dentition (Nothing loose per pt.) Neurological Assessment Level of Consciousness: Awake, Alert, Appropriate and Follows Commands Hx Seizures: No Numbness or tingling in extremities: No Anesthesia Plan Anesthesia Risk discussed: Yes Anesthesia Plan: Verified ASA Class: II (E) Anesthesia Type: General
[2023-09-22] MEDS: LIDOCAINE 1% W/EPI 1:100,000 20ML VIAL 20 ML (00:50)
[2023-09-22] MEDS: SODIUM CHLORIDE IRRIG SOLUTION 3,000 ML 999 ML IR (00:50)
--- NOTE | 2023-09-22 01:14 | P.OP_ITS ---
Date of procedure: 09/22/23 Pre-op Diagnosis:: 1. Suspected ovarian torsion 2. Left complex ovarian cyst 3. Right simple ovarian cyst Post-op Diagnosis:: 1. Suspected ovarian torsion 2. Left complex ovarian cyst 3. Right simple ovarian cyst Procedure performed:: Diagnostic laparoscopy Surgeon:: Jess Pack DO CASH ACCOUNTING CLERK:: Sravanthi Lerner Anesthesia: GETA Estimated blood loss (mL): 5 Operative findings:: 1. Bimanual examination revealed an anteverted 6-week size uterus with smooth contour without any adnexal masses. No IUD strings visualized on exam 2. Laparoscopic exam revealed grossly enlarged boggy uterus. The right ovary appears normal without any significant cyst noted. The left ovary appeared grossly enlarged and heavy, however was not torsed. Normal-appearing fallopian tubes and liver. Operative note:: The patient was taken to the operating room where general anesthesia was obtained and noted to be adequate. SCDs were placed for thromboembolism prophylaxis and found to be working. The patient was placed in the dorsal lithotomy position using yellowfin stirrups. Timeout verified the correct patient and procedure. The patient was prepped and draped in a usual sterile fashion. A catheter was used to drain her bladder. An acorn uterine manipulator was placed and my top gloves were removed. Of note no IUD strings visualized. 10mL of Lidocaine with epinepherine was injected infraumbilically and a scalpel was used to make a 5 mm infraumbilical incision with the assistance from a hemostat. The skin was tented and Optiview blunt trocar was introduced into the abdomen in the usual fashion. CO2 gas was connected with an initial pressure of 6 mmHg noted. Pneumoperitoneum was created to a pressure of 15 mmHg. The laparoscopic camera was inserted and a quick survey of the abdomen revealed grossly normal anatomy. The uterus was lifted out of the pelvis and appeared as described above. The patient was placed in Trendelenburg. 10mLs of local anesthetic was injected and a 5mm incision was then made in the left lower quadrant with careful attention to avoid the rectus muscles and vasculature and under direct laparoscopic visualization a blunt trocar was introduced into the abdominal cavity. The fallopian tubes were identified on the cornu of the uterus and followed out to the ovaries which revealed grossly appearing anatomy with left ovarian cyst noted. The ovarian was definitely a darker color like it may have possibly recently detorsed. A grasper was used to elevate the left fallopian tube and ovary and images were obtained. This process was repeated on the contralateral side. There was a small amount of free fluid noted in the cul-de-sac that was clear/ straw colored and normal appearing. Decision was made to not complete an ovarian cystectomy as I did not feel the patient was appropriately counseled for the risks preoperatively. Pneumoperitoneum reduced, and all ports removed. The 2 abdominal incisions were closed with a single simple interrupted suture using 4-0 Monocryl. Dermabond was applied to each skin incision. The [place] uterine manipulator was removed. All counts were correct x2, per nursing. The patient was extubated, stable, and transferred to the PACU. She will be discharged after meeting all DC criteria to include voiding, ambulating and tolerating PO independently. Condition: stable Disposition: same day Complications:: None
--- NOTE | 2023-09-22 01:20 | EXP.ANES.I ---
[facility] Anesthesia Record Part I Anesthesia Record I Intake, IV Amount: 500 Hydration: Adequate Estimated blood loss (mL): 10 Urine output (mL): 0 Blood Products used (#): none Blood Pressure: 141/80 SaO2: 100 Pulse Rate: 118 Airway Patency: Patent Respiratory Rate: 18 Temperature: 97.2 F Patient is:: Awake (Talking) and Stable Stable to PACU at:: 01:17
[2023-09-22] MEDS: HYDROMORPHONE 2MG/ML SYRINGE 0.5 MG IV (01:25)
[2023-09-22] MEDS: MEPERIDINE 25MG/ML 1ML SYRINGE 25 MG IV (01:35)
[2023-09-22] MEDS: OXYCODONE 5MG IMMEDIATE RELEASE TABLET 5 MG PO (02:10)
--- NOTE | 2023-09-22 13:28 | P.PNANES_ITS ---
[facility] Anesthesia Record Part II Anesthesia Record Part II Discharge Time: 01:42 Destination: Obstetric Gynecology Dept PACU nurse assessment reviewed?: Yes Patient Condition:: Good Anesthesia Complications:: None Swallowing reflex intact?: Yes Airway Patency: Patent Cyanosis?: No Blood Pressure: 129/69 SaO2: 100 Respiratory Rate: 17 Pulse Rate: 88 Temperature: 97.2 F Mental Status: Alert & Oriented Pain level:: 5 Nausea and/or vomitting:: None Intake, IV Amount: 500 Hydration: Adequate
[2023-09-24 08:20] LABS: Neisseria gonorrhoeae, NAA Negative (Negative)
== END 2023-09-22 02:15 | disposition still patient (30) ==
PROVIDERS: Obstetrics & Gynecology; PCP Physician Assistant; Visit Provider Emergency Medicine
PROC: (CPT 49320; principal; 2023-09-22)
DX: N83.512 Torsion of left ovary and ovarian pedicle (principal); N83.291 Other ovarian cyst, right side; N83.292 Other ovarian cyst, left side
CPT/HCPCS: 49320; 74177; 76830; 80053; 81001; 83605; 83690; 84702; 85025; 87491; 87591; 96374; J0131; J2405; J2710; Q9967

== ENCOUNTER 2024-04-26 13:53 | Emergency (ER) | payer BC, SELFPAY ==
[2024-04-26 14:40] VITALS: BP 122/74; PULSE 68; RESP 19; TEMP 37.1; O2SAT 100; BMI 25.3
[2024-04-26 14:43] LABS: UTC Strep Screen (Rapid) Negative (Negative)
--- NOTE | 2024-04-26 14:56 | EXP.UTC ---
Discharge Plan Disposition Patient Disposition: Home, Self-Care Condition: Good Prescriptions Prescriptions: No Action Mirena 20 mcg/24 hours (6 yrs) 52 mg intrauterine device 1 device INTRAUTERI ONCE venlafaxine 75 mg capsule,extended release 24hr See Rx Instructions .ROUTE .COMPLEX Qty: 90 4RF Dose Instruction: Take 1 capsule by mouth once daily Rx Instructions: Take 1 capsule by mouth once daily Referrals Follow up/Referrals: Guillermina Arias PA [Primary Care Provider] - See instructions Activity Restrictions/Add. Instructions Additional Instructions/Restrictions: *Monitor Temp, Over the counter Motrin or Tylenol as directed/as needed Tylenol every 4 hours and Motrin every 6 hours (as long as your family doctor has told you that you can take it) for fever or pain. and straight to ER if unable to lower temp less than 101.0 after medication given *Warm salt water gargles may help to soothe the throat *Throat Lozenges? *Warm fluids like tea with honey may help to soothe the throat? *Sleep elevated *Humidifier/Vaporizer Your throat swab was sent for culture. Those results are typically sent to your primary care. Be sure to follow up in 2-3 days with your family doctor/primary care physician if no improvement so they can review those result and treat if necessary. If you don?t have a primary care doctor, I recommend you get one but in the mean time, you will have to return to a walk in clinic Follow up IMMEDIATELY for new or worsening symptoms or no Noticeable improvement over the next 48-72 hours. 911 for difficulty breathing or swallowing Clinical Impressions Clinical Impression: Sore throat (viral) Instructions Patient Instructions: Sore Throat Print Language Print Language: Irish Discharge ED Provider: Frieda Quispe [facility] [place] HPI General Stated complaint: sore throat Time Seen by Provider: 04/26/24 14:56 History of Present Illness Provider Complaint: Patient states that her kids has has strep throat and now her throat is starting to hurt too so she came in to get checked worried that she may have strep throat Related Data Home Medications ?Medication ?Instructions ?Recorded ?Confirmed levonorgestrel 21 mcg/24 hr (up to 1 device intrauterine ONCE b/c 02/24/21 11/17/23 8 years) 52 mg intrauterine device (Mirena) Previous Rx's ?Medication ?Instructions ?Recorded venlafaxine 75 mg capsule,extended See Rx Instructions .Route 03/27/24 release 24 hr .COMPLEX #90 caps Allergies Allergy/AdvReac Type Severity Reaction Status Date / Time cariprazine (From Vraylar) AdvReac Depression Verified 11/17/23 10:21 [facility] Disclaimer: The information contained in this section may have been updated after the patient was seen, as this information can be updated by other users. Social History Smoking Status: Never smoker alcohol intake: never substance use type: denies use current occupational status: employed household members: family housing: house ROS Obtained: Yes All systems reviewed & no additional complaints except as documented and Yes Systems reviewed as appropriate & no additional complaints except as documented Constitutional Constitutional: Reports system reviewed and no additional complaints, except as documented, Reports as per HPI, Denies body ache, Denies chills, Denies fever(s) and Denies headache(s) ENT Ears, Nose, Mouth, and Throat: Reports system reviewed and no additional complaints, except as documented, Reports as per HPI, Denies headache(s) and Reports sore throat Cardiovascular Cardiovascular: Reports system reviewed and no additional complaints, except as documented and Reports as per HPI Respiratory Respiratory: Reports system reviewed and no additional complaints, except as documented and Reports as per HPI Gastrointestinal Gastrointestingal: Reports system reviewed and no additional complaints, except as documented and as per HPI Genitourinary Female Genitourinary: Reports system reviewed and no additional complaints, except as documented and Reports as per HPI Neurologic Neurologic: Denies headache(s) Physical Exam General General appearance: alert and in no apparent distress ENT ENT exam: Present mucous membranes moist Expanded ENT Exam Nose exam: Absent sinus tenderness Throat exam: Present tonsillar erythema; Absent tonsillar exudate Respiratory Respiratory exam: Present normal lung sounds bilaterally; Absent respiratory distress or wheezes Cardiovascular Cardiovascular exam: Present regular rate, normal rhythm and normal heart sounds Neurological Exam Neurological exam: Present alert, oriented X3 and normal gait Medical Decision Making Medical Records Screening: Per USPSTF and CDC recommendations, given the prevalence of disease in our region, it is our hospital?s policy to screen for HIV and viral Hepatitis for all patients aged 18 and over and those with ongoing risk factors. [place] Inquiry Pt receiving controlled substance: No [place] was queried for this patient: No Lab Data Lab results reviewed: Yes I reviewed the patient's lab results. Lab Results 04/26/24 14:23: Strep Scn Rapid Clinic Negative Orders (Tests/Meds): ORDERS Category Date Time Status Strep Screen Confirmation Stat Micro 04/26/24 14:23 Received
[2024-04-26 15:00] VITALS: BP 122/74; PULSE 68; RESP 19; TEMP 37.1; O2SAT 100
== END 2024-04-26 15:02 | disposition home or self-care (01) ==
PROVIDERS: Emergency Provider Nurse Practitioner; PCP Physician Assistant
DX: R07.0 Pain in throat (principal)
CPT/HCPCS: 87880; 99212; G0381

== ENCOUNTER 2024-06-29 18:50 | Emergency (ER) | payer OTHER, SELFPAY ==
[2024-06-29 18:51] VITALS: BP 130/78; PULSE 92; RESP 20; TEMP 36.4; O2SAT 100; BMI 22.6
[2024-06-29 18:59] VITALS: BP 130/78; PULSE 76; O2SAT 100
[2024-06-29 19:00] VITALS: BP 129/80; PULSE 73; O2SAT 100
--- NOTE | 2024-06-29 19:08 | US_ITS ---
PROCEDURE INFORMATION: Exam: US Pelvis, Transvaginal, Non-Obstetric, US Duplex Artery and Vein of the Reproductive Organs, Complete Exam date and time: 06/29/2024 7:34 PM Age: 28 years old Clinical indication: Pelvic pain; Additional info: R/O ovarian torsion, HX of torsion of lt ov, lft sided pain TECHNIQUE: Imaging protocol: Real-time transvaginal pelvic (non-obstetric) ultrasound with image documentation. Transvaginal imaging was used for better evaluation of the endometrium, adnexa, and/or cervix. Real-time duplex ultrasound scan of the arterial and venous flow of the abdominal and/or reproductive organs with B-mode, color Doppler flow and spectral waveform analysis with image documentation. Exam focused on the region of clinical concern. Complete exam. Duplex exam was performed to evaluate for vascular conditions. COMPARISON: US TRANSVAGINAL 09/21/2023 8:59 PM FINDINGS: Uterus: Measures approximately 7.2 x 4.6 x 5.8 cm. IUD: IUD is within the endometrial canal and appears unremarkable. Endometrial stripe thickness: Endometrial thickness is approximately 5 mm. Right ovary/adnexa: Measures approximately 13.7 mL Multiple small anechoic follicles with dominant simple anechoic ovarian cyst/follicle measuring approximately 3.0 x 2.1 x 2.6 cm. Left ovary/adnexa: Measures approximately 4.8 mL. Multiple small anechoic follicles. Urinary bladder: NA Intraperitoneal space: No discernible adnexal mass or abnormality. No free fluid within the pelvis. Other findings: Doppler examination of the ovaries with pulsed wave and color images was performed which demonstrate arterial/venous waveforms within normal limits. IMPRESSION: 1. Multiple small bilateral anechoic follicles with dominant simple anechoic RIGHT ovarian functional cyst/follicle measuring 3 cm. 2. Both ovaries demonstrate blood flow on Doppler sonogram. 3. IUD is within the endometrial canal and appears unremarkable.
--- NOTE | 2024-06-29 19:13 | ED_ITS ---
<Statement entered by Sue Medrano DO - 06/29/24 23:35> I was consulted by the LAUREN, and we discussed the complexity of the problems being addressed. I approved the treatment and management plan for this patient's care in the emergency department, thus performing a substantive portion of the medical decision making. Patient does not have any cyst greater than 5 cm and has good flow noted bilaterally on ultrasound, making torsion very unlikely. Given this, it is felt that she is appropriate for discharge with gynecology follow-up. Strict return precautions given Sue Medrano DO Discharge Plan Disposition Patient Disposition: Home, Self-Care Condition: Good Chief Complaint: Abdominal Pain Prescriptions Prescriptions: No Action Mirena 20 mcg/24 hours (6 yrs) 52 mg intrauterine device 1 device INTRAUTERI ONCE buspirone 5 mg tablet 5 mg PO BID Patient Comments: TAKE 1 TABLET BY MOUTH TWICE DAILY DIRECTED FOR ANXIETY venlafaxine 75 mg capsule,extended release 24hr 75 mg PO DAILY Rx Instructions: Take 1 capsule by mouth once daily Referrals Follow up/Referrals: Guillermina Arias PA [Primary Care Provider] - See instructions Activity Restrictions/Add. Instructions Additional Instructions/Restrictions: Return to the emergency department any worsening signs or symptoms, utilize ibuprofen and Tylenol as needed ice/heat as needed for pain and symptomatic relief. Follow-up with RN PROCEDURE provider regarding ovarian cyst, right ovarian cyst currently larger than left. Clinical Impressions Clinical Impression: Cyst of right ovary, Cyst of left ovary Instructions Patient Instructions: DI for Acute Abdominal Pain, DI for Ovarian Cyst Print Language Print Language: Sammarinese Discharge ED Provider: Sue Medrano General Adult HPI General Chief complaint: Abdominal Pain Stated complaint: pain in left groin area Time Seen by Provider: 06/29/24 18:59 Mode of Arrival: Ambulatory Source of Information: Patient Limitations: No Limitations Description of Symptoms (Recalled from ER Triage Doc. by RN): left abdominal pain. hx of ovarian torsion History of Present Illness HPI narrative: 28-year-old female presents the emergency department with left-sided abdominal pain/pelvic pain that has been ongoing for the last 1 week, it waxes and wanes but worsens today, denies any fever chills chest pain shortness of breath nausea vomiting constipation diarrhea, denies any vaginal bleeding, vaginal discharge, denies any urinary type symptomatology, no concern for at this time, patient has IUD in place, has not had menstrual period in quite some time, she is a current everyday tobacco user (vapes), denies any alcohol or drug use, has no other real relevant past medical history with the exception of anxiety/depression, and previous history of bilateral ovarian cyst and previous ovarian torsion on the left. Triage vitals unremarkable. Onset (ago): day(s) Related Data Home Medications ?Medication ?Instructions ?Recorded ?Confirmed levonorgestrel (Mirena) 1 device intrauterine ONCE b/c 02/24/21 04/26/24 buspirone 5 mg tablet 5 mg PO BID 04/26/24 04/26/24 venlafaxine 75 mg capsule,extended 75 mg PO DAILY 04/26/24 04/26/24 release 24 hr Allergies Allergy/AdvReac Type Severity Reaction Status Date / Time cariprazine (From Vraylar) AdvReac Depression Verified 11/17/23 10:21 [facility] Disclaimer: The information contained in this section may have been updated after the patient was seen, as this information can be updated by other users. Social History Smoking Status: Current every day smoker tobacco type: cigarettes packs per day: 1 alcohol intake: never substance use type: denies use current occupational status: employed Travel in the last 8 weeks: None household members: family housing: house Have you lived/traveled outside US in past 30 days?: No Contact w/someone who lives/traveled outside US past 30 days?: No Exposure to someone with infectious disease in past 14 days?: No Do you have a fever (greater than 100.4 F or 38 C)?: No Have you tested positive for COVID-19: No Exposed to someone with COVID-19 in past 14 days?: No Do you have a sore throat?: No Do you have a cough?: No Do you have any weakness?: No Do you have any diarrhea?: No Are you experiencing any unusual bleeding?: No Do you have any muscle aches/pain?: No Do you have any abdominal pain?: No Are you experiencing loss of taste or smell?: No Other Medical History Have you received the Flu Vaccine for this season: No Have you received the Pneumonia Vaccine: No ROS Obtained: Yes All systems reviewed & no additional complaints except as documented Physical Exam General General appearance: alert and in no apparent distress Head Head exam: atraumatic and normocephalic Eye Eye exam: Present PERRL and EOMI ENT ENT exam: Present mucous membranes moist Neck Neck exam: Present normal inspection Chest Chest inspection: Present normal inspection and symmetric chest wall rise Respiratory Respiratory exam: Present normal lung sounds bilaterally; Absent respiratory distress Cardiovascular Cardiovascular exam: Present regular rate and normal rhythm Abdominal Exam Abdominal exam: Present soft, tenderness and guarding Abdominal tenderness: Present LLQ, suprapubic and mild Comment: Perineal/left lower quadrant pain and suprapubic pain to palpation that is mild, with some mild voluntary guarding. Extremities Exam Extremities exam: Present normal inspection Neurological Exam Neurological exam: Present alert and oriented X3 Psychiatric Psychiatric exam: Present normal affect Skin Skin exam: Present warm and dry Medical Decision Making Medical Records Medical records reviewed: Yes I reviewed the patient's medical records. Screening: Per USPSTF and CDC recommendations, given the prevalence of disease in our region, it is our hospital?s policy to screen for HIV and viral Hepatitis for all patients aged 18 and over and those with ongoing risk factors. Presley Inquiry Pt receiving controlled substance: No Presley was queried for this patient: No Vital Signs: 06/29/24 18:51 06/29/24 18:59 06/29/24 19:00 Temperature 97.6 F Temperature Source Oral Pulse Rate 76 73 Pulse Rate [Right] 92 H Respiratory Rate 20 Blood Pressure 130/78 129/80 Blood Pressure [Right Arm] 130/78 Blood Pressure Mean Blood Pressure Mean [Right Arm] 95 02 Sat by Pulse Oximetry 100 100 100 Oxygen Delivery Method Room Air Room Air 06/29/24 20:04 Temperature Temperature Source Pulse Rate 75 Pulse Rate [Right] Respiratory Rate Blood Pressure 113/73 Blood Pressure [Right Arm] Blood Pressure Mean 82 Blood Pressure Mean [Right Arm] 02 Sat by Pulse Oximetry 98 Oxygen Delivery Method Room Air Lab Data Lab results reviewed: Yes I reviewed the patient's lab results. Lab Results 06/29/24 18:58: Urine Color Yellow, Urine Appearance Clear, Urine pH 6.0, Ur Specific [place] 1.025, Urine Protein Negative, Urine Glucose (UA) Negative, Urine Ketones Negative, Urine Blood Trace-i, Urine Nitrate Negative, Urine Bilirubin Negative, Urine Urobilinogen 1.0, Ur Leukocyte Esterase Negative, Urine RBC Occasional, Urine WBC Occasional, Ur Squamous Epith Cells 3-5, Urine Bacteria Trace, Urine HCG, Qual Negative 06/29/24 19:40: WBC 8.2, RBC 4.15 L, Hgb 11.9 L, Hct 33.6 L, MCV 81.0, MCH 28.7, MCHC 35.4, RDW 13.0, Plt Count 249, MPV 9.8, Neut % (Auto) 49.5, Lymph % (Auto) 39.6, [place] % (Auto) 6.0, Eos % (Auto) 4.3, Baso % (Auto) 0.5, Neut # (Auto) 4.1, Lymph # (Auto) 3.3, [place] # (Auto) 0.5, Eos # (Auto) 0.4, Baso # (Auto) 0.0, Sodium 140, Potassium 4.1, Chloride 107, Carbon Dioxide 24, Anion Gap 13.1, BUN 17, Creatinine 0.70, Estimated Creat Clear 122, Estimated GFR 101, Est GFR ( Amer) 122, Glucose 85, Calcium 9.1, Total Bilirubin 0.4, AST 34, ALT 20, Alkaline Phosphatase 66, Total Protein 7.0, Albumin 4.4, Globulin 2.6, Albumin/Globulin Ratio 1.7, Lipase 46 06/29/24 19:40 06/29/24 19:40 Orders (Tests/Meds): ED MEDICATIONS Discontinued Medications Generic Name Dose Route Start Last Admin Trade Name Freq PRN Reason Stop Dose Admin Acetaminophen 500 mg 06/29/24 20:30 06/29/24 20:33 Acetaminophen 500mg Tab PO 06/29/24 20:31 500 mg ONCE ONE Administration Ketorolac Tromethamine 15 mg 06/29/24 19:12 06/29/24 20:34 Ketorolac 30mg/Ml Vial IV 06/29/24 19:13 15 mg ONCE ONE Administration ORDERS Category Date Time Status US transvaginal Stat Exams 06/29/24 19:08 Completed Complete Blood Count Auto Diff Stat Lab 06/29/24 19:40 Completed Comprehensive Metabolic Panel Stat Lab 06/29/24 19:40 Completed HIV Combo Stat Lab 06/29/24 19:40 Received Hepatitis C Ab Qual. W/ RFX Stat Lab 06/29/24 19:40 Received Lipase Stat Lab 06/29/24 19:40 Completed Urinalysis and Microscopic Stat Lab 06/29/24 18:58 Completed Urine , HCG Qual. Stat Lab 06/29/24 18:58 Completed Medical Decision Narrative: 28-year-old female presents emerged part with left-sided abdominal pain, differential diagnosis to include but not limited to acute UTI, acute pyelonephritis, Ovarian cyst, ovarian torsion I discussed patient case with attending physician Dr. Medrano Will obtain basic laboratory studies, lipase, urinalysis, urine hCG qualitative, will obtain transvaginal ultrasound, and 15 mg IV Toradol for pain. CBC unremarkable HCG qualitative negative. Will give 500 mg p.o. Tylenol for pain. Urinalysis gross unremarkable. Reviewed the patient's transvaginal ultrasound along the corresponding radiologic report, multiple small bilateral anechoic follicles with dominant simple anechoic right ovarian functional cyst/follicle measuring 3 cm both ovaries demonstrate blood flow on Doppler sonogram IUD within the endometrial canal and appears unremarkable. Reexamination of the patient at 8:45 PM patient is feeling somewhat better after medication ministration, I discussed all results with the patient family at the bedside patient has no GI signs or symptoms to include nausea vomiting constipation diarrhea blood work is unremarkable, I believe this is more of an intermittent torsion versus ovarian cyst follicular pain. Recommend follow-up with RN PROCEDURE provider for right to large ovarian cyst. Pain is actually on the left side. Which is an area of cyst they are not as large as the 3 cm right ovarian cyst. Patient and family voiced understanding of the current treatment plan/discharge plan. Recommend strict ED return precautions, ibuprofen Tylenol as needed ice as needed for pain and symptomatic relief. Follow-up with RN PROCEDURE provider. Critical Care Critical Care Time Critical Care Time: No
[2024-06-29 19:47] LABS: Basophils % 0.5 % (0.1-2.0); Eosinophils # 0.4 K/mm3 (0.0-0.4); Eosinophils % 4.3 % (0.1-12.0); Hematocrit 33.6 % (37.0-47.0); Hemoglobin 11.9 g/dL (12.2-16.2); Lymphocytes # 3.3 K/mm3 (0.7-4.5); Lymphocytes % 39.6 % (10-50); Mean Corpuscular HGB Conc 35.4 g/dL (31.8-35.4); Mean Corpuscular Hemoglobin 28.7 pg (27.0-31.2); Mean Platelet Volume 9.8 fl (7.4-10.4); Monocytes # 0.5 K/mm3 (0.1-1.0); Neutrophils # 4.1 K/mm3 (1.8-7.8); Neutrophils % 49.5 % (37.0-80.0); Platelet Count 249 K/mm3 (142-424); Red Blood Count 4.15 M/mm3 (4.20-5.40); White Blood Count 8.2 K/mm3 (4.8-10.8)
[2024-06-29 19:56] LABS: Alanine Aminotransferase 20 U/L (12-78); Albumin Level 4.4 g/dl (3.5-5.0); Albumin/Globulin Ratio 1.7 (1.1-1.8); Alkaline Phosphatase 66 U/L (38-126); Anion Gap 13.1 mEq/L (5-15); Aspartate Amino Transferase 34 U/L (14-36); Bilirubin,Total 0.4 mg/dl (0.2-1.3); Blood Urea Nitrogen 17 mg/dl (7-17); Calcium 9.1 mg/dl (8.4-10.2); Carbon Dioxide 24 mmol/L (22.0-30.0); Chloride 107 mmol/L (98-107); Creatinine Clearance Estimated 122 mL/min (50-200); Estimated Glomerular Filt Rate 101 ml/min (>60); GFR (African American) 122 ML/MIN (>60); Globulin 2.6 g/dL (1.3-3.2); Glucose 85 mg/dl (74-100); Lipase 46 U/L (23-300); Potassium 4.1 mmoL/L (3.5-5.1); Sodium 140 mmol/L (136-145)
[2024-06-29 19:56] LABS: Microscopic, Urine URINE MICROSCOPIC (MICROSCOPIC)
[2024-06-29 20:04] VITALS: BP 113/73; PULSE 75; O2SAT 98
[2024-06-29 20:27] LABS: Urine Pregnancy, HCG Qual. Negative (Negative)
[2024-06-29 20:30] LABS: Appearance,Urine CLEAR (Clear); Bilirubin,Urine Negative (Negative); Blood, Urine TRACE-I (Negative); Color,Urine YELLOW (Yellow); Glucose,Urine (UA) Negative (Negative); Ketones,Urine Negative (Negative); Leukocyte Esterase,Urine Negative (Negative); Nitrate,Urine Negative (Negative); Protein,Urine Negative (Negative); RBC,Urine Occasional #/hpf (0-3); Specific Gravity, Urine 1.025 (1.005-1.030)
[2024-06-29 20:31] LABS: Bacteria,Urine Trace /lpf; WBC,Urine Occasional #/hpf (0-3)
[2024-06-29] MEDS: ACETAMINOPHEN 500MG TAB 500 MG PO (20:33)
[2024-06-29] MEDS: KETOROLAC 30MG/ML VIAL 15 MG IV (20:34)
[2024-06-29 20:56] VITALS: BP 118/71; PULSE 69; RESP 20; TEMP 37.1; O2SAT 98
[2024-06-30 10:57] LABS: Hepatitis C Ab Qual. W/ RFX NEGATIVE (Negative)
[2024-06-30 13:16] LABS: HIV Combo NEGATIVE (Negative)
== END 2024-06-29 20:59 | disposition home or self-care (01) ==
PROVIDERS: Physician Assistant; Emergency Provider Emergency Medicine; PCP Physician Assistant
DX: N83.201 Unspecified ovarian cyst, right side (principal); N83.202 Unspecified ovarian cyst, left side; R10.32 Left lower quadrant pain; R10.2 Pelvic and perineal pain; F17.210 Nicotine dependence, cigarettes, uncomplicated
CPT/HCPCS: 76830; 80053; 81001; 81025; 83690; 85025; 86803; 87389; 96374; 99283; J1885

== ENCOUNTER 2024-10-02 15:10 | Outpatient (CLI) | payer OTHER, SELFPAY ==
[2024-10-02 15:12] LABS: Coronavirus 19, PCR Not Detected (NotDetected); Human Rhinovirus Not Detected (NotDetected); Influenza A, PCR Not Detected (NotDetected); Influenza B, PCR Not Detected (NotDetected); Respiratory Syncytial Virus Not Detected (NotDetected)
== END 2024-10-02 23:59 | disposition home or self-care (01) ==
LOC: LAB.DROPOF 15:11
PROVIDERS: Student in an Organized Health Care Education/Training Program; PCP Nurse Practitioner; Visit Provider Nurse Practitioner
DX: J02.8 Acute pharyngitis due to other specified organisms (principal); B97.89 Other viral agents as the cause of diseases classified elsewhere
CPT/HCPCS: 87631

== ENCOUNTER 2025-01-30 12:57 | Outpatient (CLI) | payer SELFPAY ==
--- OUTSIDE RECORDS SUMMARY | 2025-01-30 13:01 | XMS_ITS | Clinical Summary ---
Author Organization [facility] Address [address] [place] [address] Care Team Providers Care Rn Post Partum Name Role Phone Guillermina Arias Primary Care Provider [phone] Allergies No known active allergies Medications Vortioxetine HBr (Trintellix) 10 MG tablet tablet Take 1 tablet by mouth Daily With Breakfast. Active Active Problems Problem Noted Date Diagnosed Date IUD (intrauterine device) in place 04/27/2023 Overview (04/27/2023): Mirena placed 04/27/23. U/S F/U- Atypical squamous cells of u ndetermined significance (ASCUS) on Papanicolaou smear of cervix 06/30/2021 Immunizations Immunization Administration Dates Next Due COVID-19 (Network Intelligence) Purple Cap Monovalent 05/29/2020 DTP / HiB 05/14/1998,05/14/1998 DTaP, Unspecified 08/19/1999,08/19/1999 Flu Vaccine Quad PF >36MO 03/25/2018 HPV Quadrivalent 09/27/2008,09/27/2008 Hep A, 2 Dose 09/27/2008,09/27/2008 Hep B / HiB 08/19/1999,08/19/1999 IPV 08/19/1999,08/19/1999 MMR 08/19/1999,08/19/1999 Tdap 02/06/2017, 7,09/27/2008,2008 Varicella 08/19/1999,08/19/1999 Family History Medical History Relation Name Comments Diabetes Father Cancer Maternal Grandmother unknown type Bipolar disorder Mother Depression Mother Breast cancer Neg Hx Colon cancer Neg Hx Osteoporosis Neg Hx Ovarian cancer Neg Hx Uterine cancer Neg Hx Relation Name Status Comments Father Alive Maternal Grandmother Mother Alive Social History Tobacco Use Types Packs/Day Years Used Date Smoking Tobacco: Former Cigarettes Q uit: 01/30/2020 Smokeless Tobacco: Never Tobacco Cessation:Counseling Given: Not Answered Alcohol Use Standard Drinks/Week Comments Not Currently 0 (1 standard drink = 0.6 oz pur e alcohol) Abuse Screen Answer Date Recorded Unsafe at Home or Work/School Not on file Feels Threatened by Someone? Not on file 04/2023 Does Anyone Keep You from Co ntacting Others or Doint Things Outside the Home? Not on file 03/11/2023 Physical Sign of Abuse Present Not on file 1 Housing Stability Answer Date Recorded Current Living Arrangements Not on file 02/28 Potentially Unsafe Housing Conditions Not on karoline e 03/11/2023 Family and Community Support Answer Jeanmarie e Recorded Help with Day-to-Day Activities Not on file 03/11/2023 Lonely or Isolated Not on file 03/11/2023 Employment Answer Date Recorded Do you want help finding or keeping work or a joan b? Not on file 03/11/2023 Disabilities Answer Date Recorded Concentrating, Remembering, or Making Decisions Difficulty Not on file 03/11/2023 Doing Errands Independently Difficulty Not on fi le 03/11/2023 Education Answer Date Recorded Help with school or training? Not on file Preferred Language Not on file 03/11/2023 Comments No Sex and Gender Information Value Date Recorded Sex Assigned at Not on file Legal Sex Female 2:53 PM EDT Gender Identity Not on file Sexual Orientation Not on file Last Filed Vital Signs Vital Sign Reading Time Taken Comments Blood Pressure 108/62 04/27/2023 1:55 PM EST Pulse 72 06/02/2021 2:00 PM EST Temperature 36.1 C (97 F) 06/02/2021 2:00 PM EST Respiratory Rate 18 06/02/2021 2:00 PM EST Oxygen Saturation 98% 06/02/2021 2:00 PM EST Inhaled Oxygen Concentration - - Weight 71.3 kg (157 lb 3.2 oz) 04/27/2023 1:55 P M EST Height 172.7 cm (5' 8 ) 04/27/2023 1:55 PM EST Body Mass Index 23.9 04/27/2023 1:55 PM EST Plan of Treatment Health Maintenance Due Date Last Done Comments ANNUAL PHYSICAL 06/02/2022 06/02/2021 COVID-19 Vaccine ( season) 2024 05/29/2020 Annual Gynecologic Pelvic and Breast Exam 04/15/2024 04/14/2023, 06/11/2021 INFLUENZA VACCINE 02/28/2025 07/11/2021, 03/25/2018 TDAP/TD VACCINES (5 - Td or Tdap) 07/11/2031 07/11/2021, 02/06/2017, 02/06/2017, Additional history exists Pneumococcal Vaccine 0-49 Aged Out 12/21/2001 No longer eligible based on patient's age to complete this topic HEPATITIS C SCREENING Completed 06/02/2021 CHLAMYDIA SCREENING Discontinued 04/14/2023 Procedures Procedure Name Priority Date/Time Associated Diagnosis Comments LIQUID-BASED PAP SMEAR WITH HPV GENOTYPING IF ASCUS, [facility] ([facility]) Routine 04/14/2023 11:11 AM EST H/O abnormal cervical Papanicolaou smear SCANNED - PAP SMEAR 06/11/2021 HEPATITIS C ANTIBODY Routine 06/02/2021 2:35 PM EST from Last 3 Months or Most Recently Relevant to Health Maintenance Results * LIQUID-BASED PAP SMEAR WITH HPV GENOTYPING IF ASCUS ([facility]) (04/14/2023 11:11 AM EST) Reference Lab Report [facility] [address] [place] [address] or [phone] Marcus Tamayo M.D., Silk Brusher PATIENT NAME LABORATORY NO. [id number] NG [id number] AGE SEX SSN CLIENT REF # [facility] ([place] 25 1995 F [id number] Raymond JIMBO HURTADO REQUESTING Chantel [place] [address] ANGEL LEACHRI DATE COLLECTED DATE RECEIVED DATE REPORTED 04/14/2023 04/14/2023 04/19/2023 ThinPrep Pap with Cytyc Imaging DIAGNOSIS: Negative for intraepithelial lesion or malignancy Multiple factors can influence accuracy of Pap tests; therefore, screening at regular intervals is necessary for early cancer detection. COMMENT: Benign cellular changes associated with inflammation are present. SPECIMEN ADEQUACY: SATISFACTORY FOR EVALUATION Transformation zone is present. SOURCE OF SPECIMEN: CERVICAL/ENDOCERV ICAL SLIDES: 1 CLINICAL HISTORY: Abnormal cervical Papanicolaou smear DRY BOX OPERATOR: AMADOR SAENZ (ASCP) CPT CODES: [id number] 04/19/2023 6:47 AM EST [facility] ThinPrep Vial Cervix uteri structure / Unknown Collection / Unknown 04/14/2023 11:11 AM EST 04/14/2023 11:11 AM EST Tracey Leach GRAY MIXING OPERATOR PATHOLOGY/CYTOLOGY ORDERABLES Final Result [facility]
[address] [place] [address], * SCANNED - PAP SMEAR (06/11/2021) Derrick ORELLANA CHART REVIEW TABS Final Res ult * Hepatitis C Antibody (06/02/2021 2:35 PM EST) Hep C Virus Ab <0.1 0.0 - 0.9 s/co ratio [facility] Comment: Negative: < 0.8 Indeterminate: 0.8 - 0.9 Positive: > 0.9 The CDC recommends that a positive HCV antibody result be followed up with a HCV Nucleic Acid Amplification test (062588). 06/02/2021 2:35 PM EST 06/02/2021 Narrative [facility] (AMB[facility]ATORY) - 06/03/2021 12:08 PM EST Performed at: 01 - [facility] [address] [place], [place] [id number] Nursing Professor: Roger Baker PhD, Phone: [phone] Patient Fasting: N us Derrick ORELLANA LAB BLOOD ORDERABLES Final Res ult [facility] ([facility]) [address] [place] [address], [facility] [address] [place] [address], from Last 3 Months or Most Recently Relevant to Health Maintenance Care Teams Rn Post Partum Relationship Specialty Start Date End Date Guillermina Arias PA PCP - General Physician Banking Management Consulting Manager 04/05/23
[2025-01-30 13:06] LABS: COC Drug Screen Collection Only
== END 2025-01-30 23:59 | disposition home or self-care (01) ==
PROVIDERS: PCP Physician Assistant
DX: R69 Illness, unspecified (principal)

== ENCOUNTER 2025-02-20 12:14 | Emergency (ER) | payer OTHER, SELFPAY ==
[2025-02-20] VITALS (7 sets, daily range): BP systolic 100–131; BP diastolic 66–82; PULSE 80–103; RESP 15–20; TEMP 36.8–36.9; O2SAT 100; BMI 21.2
--- NOTE | 2025-02-20 12:33 | ED_ITS ---
<Statement entered by Pedro Goldsmith MD - 02/20/25 16:00> I consulted the LAUREN, and we discussed the complexity of the problems being addressed. I approved the treatment and management plan for this patient's care in the emergency department, thus performing a substantial portion of the medical decision making. Alton Goldsmith MD Discharge Plan Disposition Patient Disposition: Home, Self-Care Condition: Good Prescriptions Prescriptions: New ondansetron 4 mg tablet,disintegrating 4 mg PO Q6H PRN (Reason: nausea and vomiting) Qty: 14 0RF No Action Mirena 20 mcg/24 hours (6 yrs) 52 mg intrauterine device 1 device INTRAUTERI ONCE fuctplvemepenta-xgxxxqzaz-FI [Bromfed DM] 2-30-10 mg/5 mL syrup 5 ml PO Q4-6H PRN (Reason: cold symptoms) Qty: 90 0RF buspirone 5 mg tablet 5 mg PO BID Patient Comments: TAKE 1 TABLET BY MOUTH TWICE DAILY DIRECTED FOR ANXIETY venlafaxine 75 mg capsule,extended release 24hr 75 mg PO DAILY Rx Instructions: Take 1 capsule by mouth once daily Referrals Follow up/Referrals: Jess Pack DO [Staff Physician, CAN MACHINE OPERATOR] - See instructions Guillermina Arias PA [Primary Care Provider, Medical] - See instructions Activity Restrictions/Add. Instructions Additional Instructions/Restrictions: Please return to the emergency department with any worsening signs or symptoms. Please take your medication as prescribed. I recommend utilizing ibuprofen Tylenol and narcotic pain medication as prescribed. Be careful of your Tylenol consumption. Use antinausea medicine as needed. Please follow-up with your CAN MACHINE OPERATOR in the upcoming days/weeks. You have to call to make appointment. Clinical Impressions Clinical Impression: Cyst of left ovary, Ovarian cyst rupture Instructions Patient Instructions: Ovarian Cyst Print Language Print Language: Uzbek Discharge ED Provider: Pedro Goldsmith General Adult HPI General Chief complaint: Abdominal Pain Stated complaint: L Side Abd. Pain Time Seen by Provider: 02/20/25 12:28 Mode of Arrival: Ambulatory Source of Information: Patient and Significant Other Description of Symptoms (Recalled from ER Triage Doc. by RN): ruben presents to the ED for LLQ abdominal pain. patient stated her pain started 3 days ago. patient endorsed a history of ovarian torsion 1.5 years ago. History of Present Illness HPI narrative: 29-year-old female presents to the emergency department with left lower quadrant abdominal pain/pelvic pain that has been going on for the last 3 days, patient states that she has previous history of ovarian torsion remotely 1.5 years ago, states her pain feels similar . Patient has any fever chills chest pain shortness of breath, does admit to some nausea, no constipation no diarrhea no hematuria no melena no hematochezia no hematemesis no vaginal bleeding or vaginal discharge, denies any dysuria, hematuria, does have increased urinary frequency over the last couple of days, patient does have IUD implanted, unsure when last menstrual cycle was, thus/infrequent menstrual cycles. Patient's other past medical history consistent with MDD/bipolar disorder. Patient has had 2 uncomplicated vaginal deliveries, patient is a current everyday smoker (vapes), denies any alcohol or drug use. Initial triage vitals are unremarkable. Patient has not yet taken any medication for this pain. Please note that above description of symptoms, in this electronic medical record under categorization of recalled from ER triage doctor by RN are reflective of an initial nursing assessment, however, is not reflective of my full history and physical exam that was personally taken and clarified. Consequentially, this preceding description of symptoms, which may include the patient's categorized chief complaint in the EMR, do not reflect my personal clinical impression, and the ultimate description of history of present illness and patient stated complaints should be deferred to this section of the note. Unless stated otherwise or congruent with this section of the note, additional signs, symptoms, or incongruence should be interpreted as inaccurate with my clinical impression. Onset (ago): day(s) Related Data Home Medications ?Medication ?Instructions ?Recorded ?Confirmed levonorgestrel (Mirena) 1 device intrauterine ONCE b /c 02/24/21 10/02/24 buspirone 5 mg tablet 5 mg PO BID 04/26/24 5 venlafaxine 75 mg capsule,extended 75 mg PO DAILY 04/0110/02/24 release 24 hr Previous Rx's ?Medication ?Instructions ?Recorded evzbwrwaprdqtgr-oxjtlioyiimqqam-DK 5 ml PO Q4-6H PRN c old symptoms 10/02/24 2 mg-30 mg-10 mg/5 mL oral syrup #90 mL (Bromfed DM) ondansetron 4 mg disintegrating 4 mg PO Q6H PRN nausea and 02/20/25 tablet vomiting #14 tabs Allergies Allergy/AdvReac Type Severity Reaction Status Date / Time cariprazine (From Vraylar) AdvReac Depression Verified 10/02/24 11:22 [facility] Disclaimer: The information contained in this section may have been updated after the patient was seen, as this information can be updated by other users. Social History Smoking Status: Never smoker alcohol intake: never substance use type: denies use current occupational status: employed Travel in the last 8 weeks?: None household members: family housing: house Have you lived/traveled outside US in past 30 days?: No Contact w/someone who lives/traveled outside US past 30 days?: No Exposure to someone with infectious disease in past 14 days?: No Do you have a fever (greater than 100.4 F or 38 C)?: No Have you tested positive for COVID-19?: No Exposed to someone with COVID-19 in past 14 days?: No Do you have a sore throat?: No Do you have a cough?: No Do you have any weakness?: No Do you have any diarrhea?: No Are you experiencing any unusual bleeding?: No Do you have any muscle aches/pain?: No Do you have any abdominal pain?: No Are you experiencing loss of taste or smell?: No Other Medical History Have you received the Flu Vaccine for this season: No Have you received the Pneumonia Vaccine: No ROS Obtained: Yes All systems reviewed & no additional complaints except as documented Physical Exam General General appearance: alert and in no apparent distress Head Head exam: atraumatic and normocephalic Eye Eye exam: Present PERRL and EOMI ENT ENT exam: Present mucous membranes moist Neck Neck exam: Present normal inspection Chest Chest inspection: Present normal inspection and symmetric chest wall rise Respiratory Respiratory exam: Present normal lung sounds bilaterally; Absent respiratory distress Cardiovascular Cardiovascular exam: Present regular rate and normal rhythm Abdominal Exam Abdominal exam: Present soft and tenderness; Absent guarding, rebound or rigidity Abdominal tenderness: Present LLQ, suprapubic and mild Extremities Exam Extremities exam: Present normal inspection Neurological Exam Neurological exam: Present alert and oriented X3 Psychiatric Psychiatric exam: Present normal affect Skin Skin exam: Present warm and dry Medical Decision Making Medical Records Medical records reviewed: Yes I reviewed the patient's medical records. Screening: Per USPSTF and CDC recommendations, given the prevalence of disease in our region, it is our hospital?s policy to screen for HIV and viral Hepatitis for all patients aged 18 and over and those with ongoing risk factors. Presley Inquiry Pt receiving controlled substance: No Presely was queried for this patient: No Vital Signs: 02/20/25 12:20 02/20/25 13:32 02/20/25 13:40 Temperature 98.2 F Temperature Source Oral Pulse Rate 103 H 89 Pulse Rate [Right Radial] 86 Respiratory Rate 20 Blood Pressure 128/82 111/70 Blood Pressure [Left Arm] 121/72 Blood Pressure Mean [Left Arm] 88 Blood Pressure Source [Left Arm] Automatic Cuff Blood Pressure Position [Left Arm] Sitting 02 Sat by Pulse Oximetry 100 100 100 Oxygen Delivery Method Room Air 02/20/25 14:01 02/20/25 14:20 02/20/25 14:40 Temperature Temperature Source Pulse Rate 81 83 80 Pulse Rate [Right Radial] Respiratory Rate Blood Pressure 111/66 100/68 L 130/78 Blood Pressure [Left Arm] Blood Pressure Mean [Left Arm] Blood Pressure Source [Left Arm] Blood Pressure Position [Left Arm] 02 Sat by Pulse Oximetry 100 100 100 Oxygen Delivery Method Lab Data Lab results reviewed: Yes I reviewed the patient's lab results. Lab Results 02/20/25 12:29: Urine Color Yellow, Urine Appearance Clear, Urine pH 5.5, Ur Specific [place] 1.025, Urine Protein Negative, Urine Glucose (UA) Negative, Urine Ketones Negative, Urine Blood 1+ A, Urine Nitrate Negative, Urine Bilirubin Negative, Urine Urobilinogen 0.2, Ur Leukocyte Esterase Negative, Urine RBC Occasional, Urine WBC None, Ur Squamous Epith Cells Occasional, Urine Bacteria None, Urine HCG, Qual Negative 02/20/25 12:37: WBC 7.8, RBC 4.88, Hgb 14.0, Hct 40.2, MCV 82.4, MCH 28.7, MCHC 34.8, RDW 13.5, Plt Count 255, MPV 9.1, Neut % (Auto) 53.5, Lymph % (Auto) 38.7, [place] % (Auto) 4.5, Eos % (Auto) 2.8, Baso % (Auto) 0.4, Neut # (Auto) 4.2, Lymph # (Auto) 3.0, [place] # (Auto) 0.4, Eos # (Auto) 0.2, Baso # (Auto) 0.0, Sodium 140, Potassium 3.8, Chloride 103, Carbon Dioxide 25, Anion Gap 15.8 H, BUN 7, Creatinine 0.70, Estimated Creat Clear 121, Estimated GFR 100, Est GFR ( Amer) 121, Glucose 115 H, Lactate 1.3, Calcium 9.2, Total Bilirubin 0.8, AST 33, ALT 19, Alkaline Phosphatase 63, Total Protein 8.6 H, Albumin 5.0, Globulin 3.6 H, Albumin/Globulin Ratio 1.4, Lipase 41 02/20/25 12:37 02/20/25 12:37 Orders (Tests/Meds): ED MEDICATIONS Discontinued Medications Generic Name Dose Route Start Last Admin Trade Name Freq PRN Reason Stop Dose Admin Iopamidol 75 ml 02/20/25 13:33 02/20/25 13:34 Iopamidol-370 (76%);100ml Bottle IV 02/20/25 13:34 75 ml ONCE ONE Administration Ketorolac Tromethamine 15 mg 02/20/25 12:42 02/20/25 12:50 Ketorolac 15mg/Ml Vial IV 02/20/25 12:43 15 mg ONCE ONE Administration Morphine Sulfate 4 mg 02/20/25 14:51 02/20/25 14:55 Morphine 4mg/Ml Syringe IV 02/20/25 14:52 4 mg ONCE ONE Administration Ondansetron HCl 4 mg 02/20/25 12:43 02/20/25 12:50 Ondansetron 4mg/2ml Vial IV 02/20/25 12:44 4 mg ONCE ONE Administration Sodium Chloride 10 ml 02/20/25 13:33 02/20/25 13:34 Sodium Chloride 0.9% 10ml Syr (Rad Only) IV 02/20/25 13:34 10 ml ONCE ONE Administration ORDERS Category Date Time Status CT abdomen pelvis w con Stat Cat Scan 02/20/25 12:41 Taken US transvaginal Stat Exams 02/20/25 12:41 Completed Complete Blood Count Auto Diff Stat Lab 02/20/25 12:37 Completed Comprehensive Metabolic Panel Stat Lab 02/20/25 12:37 Completed Lactic Acid Stat Lab 02/20/25 12:37 Completed Lipase Stat Lab 02/20/25 12:37 Completed Urinalysis and Microscopic Stat Lab 02/20/25 12:29 Completed Urine , HCG Qual. Stat Lab 02/20/25 12:29 Completed Medical Decision Narrative: 29-year-old female presents to the emergency department with lower quadrant abdominal pain for the last 3 days, differential diagnose include but not limited to ovarian torsion, ovarian cyst rupture, leiomyoma, diverticulitis, pancreatitis, appendicitis, bowel obstruction, colitis, ileitis, acute UTI, acute pyelonephritis, nephrolithiasis, ureterolithiasis among others. I discussed this patient case with the attending physician Dr. Goldsmith Will obtain basic laboratory studies, lactic acid level lipase level UA, urine hCG qualitative, obtain CT abdomen pelvis with contrast, transvaginal ultrasound, will give 15 mg IV Toradol and 4 mg of Zofran for pain and nausea hCG qualitative negative 1+ hematuria noted on UA, negative ketonuria, negative nitrites, negative leukocyte esterase CBC unremarkable. CMP unremarkable, lipase normal limits no lactic acidosis Microscopic analysis shows occasional RBCs no WBCs occasional squamous epithelial cells and no urine bacteria. I reviewed the patient's transvaginal ultrasound along the corresponding radiologic report, probable collapsing cyst or follicle within the left ovary no suspicious adnexal mass, ovaries otherwise appear unremarkable no sonographic evidence for ovarian torsion, intrauterine device in place centrally located in the endometrial canal, endometrium appears normal, small amount of free fluid present within the cul-de-sac, small amount of free fluid is present within the right and left adnexa findings are more likely physiologic. Notified by nursing staff at approximately 2:50 PM, the patient still complaining of some pain, will give 4 mg IV morphine for pain. I reviewed the patient's CT abdomen pelvis with contrast along the corresponding radiologic report, no acute process in the abdomen or pelvis, reexamination of patient, patient's pain is somewhat improved after IV pain medication ministration, most likely had recent physiologic cyst rupture, patient will need to follow-up with CAN MACHINE OPERATOR in the upcoming days/weeks. P.o. analgesia will be initiated by attending physician. Will prescribe 4 mg p.o. Zofran as needed for nausea and vomiting. Patient was given strict ED return precautions. I discussed all results with the patient and with the bedside patient famine agreement with current treatment plan/discharge plan. Critical Care Critical Care Time Critical Care Time: No
--- NOTE | 2025-02-20 12:41 | CT_ITS ---
FINAL REPORT TECHNIQUE: Thin section axial images are obtained through the abdomen and pelvis after intravenous contrast. Reconstruction images were obtained from the axial data. Exam was performed using dose reduction techniques. CLINICAL HISTORY: Lower abdominal pain COMPARISON: 07/2023 FINDINGS: LUNG BASES: Lung bases are clear. Heart size is normal. LIVER: Homogeneous. No focal lesion. GALLBLADDER/BILIARY SYSTEM: Gallbladder is present. No gallstones. No biliary dilatation. SPLEEN: Unremarkable. PANCREAS: Unremarkable. ADRENALS: Unremarkable. KIDNEYS/URETERS/BLADDER: No hydronephrosis, renal mass, or renal stone. Incompletely distended urinary bladder. GI TRACT: No small bowel obstruction or dilatation. Normal appendix. No acute colon abnormality. Large amount of retained stool. PELVIC ORGANS: Unremarkable for age. IUD seen in the uterus. LYMPH NODES/RETROPERITONEUM/MESENTERY: No lymphadenopathy. No abdominal aortic aneurysm. ABDOMINAL WALL: The abdominal wall is intact. FREE FLUID: No ascites. BONES: No acute osseous abnormality. IMPRESSION: No acute process of the abdomen or pelvis. Reviewed, Interpreted and Dictated by Elsie Olivares MD Transcribed by Jacqueline Lemus Authenticated and . [facility]
--- NOTE | 2025-02-20 12:41 | US_ITS ---
PROCEDURE INFORMATION: Exam: US Pelvis, Transvaginal, Non-Obstetric Exam date and time: 02/20/2025 12:55 PM Age: 29 years old Clinical indication: Pelvic pain; Additional info: HX of torsion left pelvic pain TECHNIQUE: Imaging protocol: Real-time transvaginal pelvic (non-obstetric) ultrasound with image documentation. Transvaginal imaging was used for better evaluation of the endometrium, adnexa, and/or cervix. COMPARISON: US TRANSVAGINAL 06/29/2024 7:34 PM FINDINGS: Uterus: Uterus measures 7.7 x 4.1 x 5.8 cm. Myometrium appears heterogeneous. No myometrial mass or suspicious findings. Intrauterine device is in place and centrally located within the endometrial canal. Endometrial thickness measures 4 mm in greatest thickness which is within normal limits. Right ovary/adnexa: Right ovary measures 1.8 x 3.8 x 1.8 cm. There are numerous small cysts or follicles present within the right ovary. Left ovary/adnexa: Left ovary measures 3.2 x 4.2 x 2.9 cm. There are numerous small cysts or follicles present within the left ovary. Probable collapsing cyst or follicle within the left ovary measuring 1.8 x 1.3 x 2.2 cm. Urinary bladder: Not assessed on this exam. Intraperitoneal space: Small amount of free fluid is present within cul-de-sac and within the right and left adnexa. This more likely is physiologic. Other findings: Doppler examination of the ovaries with pulse wave and color images was performed which demonstrates arterial and venous waveforms within normal limits. IMPRESSION: 1. Probable collapsing cyst or follicle within the left ovary. No suspicious adnexal mass. 2. Ovaries otherwise appear unremarkable. No sonographic evidence for ovarian torsion. 3. Intrauterine device is in place and centrally located within the endometrial canal. Endometrium appears normal. 4. Small amount of free fluid is present within the cul-de-sac. Small amount of free fluid is present within the right and left adnexa. Findings more likely are physiologic.
[2025-02-20 12:44] LABS: Microscopic, Urine URINE MICROSCOPIC (MICROSCOPIC)
--- OUTSIDE RECORDS SUMMARY | 2025-02-20 12:47 | XMS_ITS | Clinical Summary ---
Author Organization [facility] Address [address] [place] [address] Care Team Providers Care Corporate Law Specialist Name Role Phone Guillermina Arias Primary Care Provider [phone] Allergies No known active allergies Medications Vortioxetine HBr (Trintellix) 10 MG tablet tablet Take 1 tablet by mouth Daily With Breakfast. Active Active Problems Problem Noted Date Diagnosed Date IUD (intrauterine device) in place 04/27/2023 Overview (04/27/2023): Mirena placed 04/27/23. U/S F/U- Atypical squamous cells of u ndetermined significance (ASCUS) on Papanicolaou smear of cervix 06/30/2021 Immunizations Immunization Administration Dates Next Due COVID-19 ([email or web address]) Purple Cap Monovalent 05/29/2020 DTP / HiB [...] Last Done Comments ANNUAL PHYSICAL 06/02/2022 06/02/2021 Annual Gynecologic Pelvic and Breast Exam 04/15/2024 04/14/2023, 06/11/2021 INFLUENZA VACCINE 12/29/2024 07/11/2021, 03/25/2018 TDAP/TD VACCINES (5 - Td [...] IF ASCUS (CARLIN,COR,MAD) (04/14/2023 11:11 AM EST) Pathologist [facility] [place] Reference Lab Report [facility] [address] [place] [address] or [phone] Marcus Tamayo M.D., Airborne Sensor Specialist PATIENT NAME [facility] [id number] AGE SEX SSN CLIENT REF # [facility] 25 1995 F [id number] [facility] JIMBO HURTADO REQUESTING Chantel CHESTER M.D. COPY TO. [place] [address] HAYLEE TRACEY DATE COLLECTED DATE RECEIVED DATE REPORTED 04/14/2023 [...] 1 CLINICAL HISTORY: Abnormal cervical Papanicolaou smear BLANKET BINDER: AMADOR SAENZ (ASCP) CPT CODES: 13310 04/19/2023 6:47 AM EST [facility] ThinPrep Vial Cervix uteri structure / Unknown Collection / Unknown 04/14/2023 11:11 AM EST 04/14/2023 11:11 AM EST Tracey Carlos RF TECHNICIAN PATHOLOGY/CYTOLOGY ORDERABLES Final Result [facility]
[address] [place] [address], [place] [phone] * SCANNED - PAP SMEAR (06/11/2021) Derrick [...] with a HCV Nucleic Acid Amplification test (442103). 06/02/2021 2:35 PM EST 06/02/2021 Narrative [facility] (AMBULATORY) - 06/03/2021 12:08 PM EST Performed at: [address] [place] [address] [place], [place] [id number] Physician Surgeon: Roger Baker PhD, Phone: [phone] Patient Fasting: N Derrick ORELLANA LAB BLOOD ORDERABLES Final Res ult [facility] (AMBULATORY) [address] [place] [address], [facility] [address] [place] [address], from Last 3 Months or Most Recently Relevant to Health Maintenance Care Teams Corporate Law Specialist Relationship Specialty Start Date End Date Guillermina Arias PA PCP - General Physician Service Coordinator 04/05/23
--- OUTSIDE RECORDS SUMMARY | 2025-02-20 12:47 | XMS_ITS | Patient Health Record ---
Author Organization [facility] Address [address] [place] [address] [address] [place] [address] Care Team Providers Care Corporate Law Assistant Name Role Phone Jennifer NICE, Yuridia Primary Care Provider Unavailab Vijaya Mohan Unavailable [phone] Reason For Referral No Information Medications Medication SIG (Take, Route, Fr equency, Duration) Notes Start Date End Date Status Medrol (Doug) 4 MG as directed Orally a s directed; Duration: 5 days 05/07/2015 Active Problems No Known Problems Plan Of Treatment Pending Test Test Name Order Date X ray : ABDOMEN 2 VIEW W/AP CHEST 2011 X ray : CHEST PA LATERAL 03/12/2015 hCG urine 05/26/2012 CBC With Differential/Platelet 2 Amylase, Serum 05/26/2012 Lipase, Serum 05/26/2012 Thyroid Panel With TSH 05/26/2012 Comp. Metabolic Panel (14) 05/26/2012 Insurance Providers Payer Name Payer Address Payer Phone Subscriber Number Group Number Insured Name Patient Relationship to Insured Coverage Start Date Coverage End Date [place] [address] [place] [address] [id number] Shane Medeiros Child - Insured has Financial Responsibility
[2025-02-20 12:50] LABS: Hematocrit 40.2 % (37.0-47.0); Hemoglobin 14.0 g/dL (12.2-16.2); Immature Granulocytes % 0.1 %; Mean Corpuscular HGB Conc 34.8 g/dL (31.8-35.4); Mean Corpuscular Hemoglobin 28.7 pg (27.0-31.2); Mean Corpuscular Volume 82.4 fl (81-99); Nucleated Red Blood Cells % 0 %; Platelet Count 255 K/mm3 (142-424); Red Blood Count 4.88 M/mm3 (4.20-5.40); Red Cell Distribution Width-SD 40.2 fL; White Blood Count 7.8 K/mm3 (4.8-10.8)
[2025-02-20] MEDS: ONDANSETRON 4MG/2ML VIAL 4 MG IV (12:50)
[2025-02-20] MEDS: KETOROLAC 15MG/ML VIAL 15 MG IV (12:50)
[2025-02-20 12:52] LABS: Bilirubin,Urine Negative (Negative); Color,Urine YELLOW (Yellow); Glucose,Urine (UA) Negative (Negative); Ketones,Urine Negative (Negative); Leukocyte Esterase,Urine Negative (Negative); PH,Urine 5.5 (5.0-8.5); Protein,Urine Negative (Negative); Specific Gravity, Urine 1.025 (1.005-1.030); Urobilinogen,Urine 0.2 EU/dl (0.2)
[2025-02-20 12:55] LABS: Urine Pregnancy, HCG Qual. Negative (Negative)
[2025-02-20 12:56] LABS: Albumin Level 5.0 g/dl (3.5-5.0); Chloride 103 mmol/L (98-107); Potassium 3.8 mmoL/L (3.5-5.1); Sodium 140 mmol/L (136-145)
[2025-02-20 12:58] LABS: Blood Urea Nitrogen 7 mg/dl (7-17)
[2025-02-20 12:59] LABS: Alanine Aminotransferase 19 U/L (12-78); Albumin/Globulin Ratio 1.4 (1.1-1.8); Alkaline Phosphatase 63 U/L (38-126); Anion Gap 15.8 mEq/L (5-15); Aspartate Amino Transferase 33 U/L (14-36); Bilirubin,Total 0.8 mg/dl (0.2-1.3); Calcium 9.2 mg/dl (8.4-10.2); Carbon Dioxide 25 mmol/L (22.0-30.0); Creatinine Clearance Estimated 121 mL/min (50-200); Creatinine,Serum 0.70 mg/dl (0.52-1.04); Estimated Glomerular Filt Rate 100 ml/min (>60); GFR (African American) 121 ML/MIN (>60); Globulin 3.6 g/dL (1.3-3.2); Glucose 115 mg/dl (74-100); Lipase 41 U/L (23-300); Total Protein,Serum 8.6 g/dl (6.3-8.2)
[2025-02-20 13:07] LABS: RBC,Urine Occasional #/hpf (0-3); Squamous Epithelial Cell,Urine Occasional #/hpf (0-5)
[2025-02-20] MEDS: SODIUM CHLORIDE 0.9% 10ML SYR (RAD ONLY) 10 ML IV (13:34)
[2025-02-20] MEDS: IOPAMIDOL-370 (76%);100ML BOTTLE 75 ML IV (13:34)
[2025-02-20] MEDS: MORPHINE 4MG/ML SYRINGE 4 MG IV (14:55)
== END 2025-02-20 15:21 | disposition home or self-care (01) ==
PROVIDERS: Physician Assistant; Emergency Provider Student in an Organized Health Care Education/Training Program; PCP Physician Assistant
DX: R10.32 Left lower quadrant pain (principal); N83.292 Other ovarian cyst, left side; R11.0 Nausea; F17.290 Nicotine dependence, other tobacco product, uncomplicated
CPT/HCPCS: 74177; 76830; 80053; 81001; 81025; 83605; 83690; 85025; 96374; 96375; 99284; 99285; J1885; J2270; J2405; Q9967